=== PATIENT | male | born 1960 | race Caucasian/White ===

== ENCOUNTER → 2023-02-14 16:26 | Outpatient (BNVA) | payer SELFPAY | PROVIDERS: PCP Nurse Practitioner Family; Visit Provider Nurse Practitioner Family | DX: I10 Essential (primary) hypertension (principal); E11.9 Type 2 diabetes mellitus without complications | CPT/HCPCS: 80053; 80061; 83036; 84443; 85025 ==

== ENCOUNTER → 2023-10-13 09:48 | Outpatient (BNVA) | payer BC, SELFPAY | PROVIDERS: PCP Nurse Practitioner Family; Visit Provider Nurse Practitioner Family | DX: E11.9 Type 2 diabetes mellitus without complications (principal); E78.2 Mixed hyperlipidemia | CPT/HCPCS: 80053; 80061; 83036; 84443; 85025; G0103 ==

== ENCOUNTER → 2024-04-08 09:36 | Outpatient (BNVA) | payer BC, SELFPAY | PROVIDERS: PCP Nurse Practitioner Family; Visit Provider Nurse Practitioner | DX: E11.9 Type 2 diabetes mellitus without complications (principal) | CPT/HCPCS: 80053; 80061; 81000; 82607; 83036 ==

== ENCOUNTER 2024-04-09 17:48 | Inpatient (IN) | payer BC, SELFPAY ==
[2024-04-09] VITALS (21 sets, daily range): BP systolic 131–210; BP diastolic 55–100; PULSE 40–51; RESP 15–27; TEMP 36.4–36.8; O2SAT 92–100; BMI 30.4
--- NOTE | 2024-04-09 17:51 | ECG_ITS ---
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1960 Requested By: Eva Trimble Order Number: [id number] Jeff MD: PIYUSH KAY Measurements Intervals [place] Rate: 50 P: 0 FL: 0 QRS: -43 QRSD: 134 T: 58 QT: 494 QTc: 454 Interpretive Statements SINUS BRADYCARDIA WITH 2ND DEGREE AV BLOCK, 2:1 OR MOBITZ TYPE II LEFT AXIS DEVIATION [QRS AXIS < -30] RIGHT BUNDLE BRANCH BLOCK [120+ ms QRS DURATION, UPRIGHT V1, 40+ ms S IN I/aVL/V4/V5/V6] VOLTAGE CRITERIA FOR LVH [MEETS CRITERIA IN ONE OF: R(aVL), S(V1), R(V5), R(V5/V6)+S(V1)] MODERATE T-WAVE ABNORMALITY, CONSIDER LATERAL ISCHEMIA [-0.1+ mV T-WAVE IN I/aVL/V5/V6] CRITICAL TEST RESULT No previous ECG available for comparison Electronically Signed On 04-09-2024 23:32:41 ROLLER SKATE ASSEMBLER by PIYUSH KAY [email or web address] [id number]
--- NOTE | 2024-04-09 17:57 | CTR_ITS ---
PROCEDURE INFORMATION: Exam: CT Head Without Contrast Exam date and time: 04/09/2024 6:00 PM Age: 63 years old Clinical indication: Stroke-like symptoms; Altered mental status/memory loss; Additional info: Possible stroke TECHNIQUE: Imaging protocol: Computed tomography of the head without contrast. Radiation optimization: All CT scans at this facility use at least one of these dose optimization techniques: automated exposure control; mA and/or kV adjustment per patient size (includes targeted exams where dose is matched to clinical indication); or iterative reconstruction. Other technique: STROKE PROTOCOL was implemented. COMPARISON: No relevant prior studies available. RADIATION DOSE METRICS: Total DLP (mGy-cm): 1148.28 FINDINGS: Brain: There is moderate cortical atrophy. Low-density changes in the white matter are consistent with nonspecific small vessel chronic ischemic change. There is no intracranial mass, hemorrhage or edema. Cerebral ventricles: No ventriculomegaly. Paranasal sinuses: Visualized sinuses are unremarkable. No fluid levels. Mastoid air cells: Visualized mastoid air cells are well aerated. Bones: Unremarkable. No acute fracture. Soft tissues: Unremarkable. CT/CT head thrombolytic [id number] IMPRESSION: No acute intracranial finding. ASSESSMENT: ASPECTS ([place] Stroke Program Early CT Score) is 10.
--- NOTE | 2024-04-09 17:57 | CTR_ITS ---
PROCEDURE INFORMATION: Exam: CTA Head With Contrast, Arteriography Exam date and time: 04/09/2024 8:36 PM Age: 63 years old Clinical indication: Speech disturbance; Dysphasia; Additional info: Possible stroke TECHNIQUE: Imaging protocol: Computed tomographic angiography of the head with contrast. Exam focused on the arteries. 3D rendering (Not supervised by radiologist): MIP and/or 3D reconstructed images were created by the technologist. Radiation optimization: All CT scans at this facility use at least one of these dose optimization techniques: automated exposure control; mA and/or kV adjustment per patient size (includes targeted exams where dose is matched to clinical indication); or iterative reconstruction. Contrast material: OMNIPAQUE 350; Contrast volume: 100 ml; Contrast route: INTRAVENOUS (IV); COMPARISON: CT head thrombolytic [id number] 04/09/2024 6:00 PM RADIATION DOSE METRICS: Total DLP (mGy-cm): 500.69 FINDINGS: ANTERIOR CIRCULATION: Right internal carotid artery: Intracranial segment is patent with no significant stenosis. No aneurysm. Right middle cerebral artery: No occlusion or significant stenosis. No aneurysm. Right anterior cerebral artery: No occlusion or significant stenosis. No aneurysm. Left internal carotid artery: Intracranial segment is patent with no significant stenosis. No aneurysm. Left middle cerebral artery: No occlusion or significant stenosis. No aneurysm. Left anterior cerebral artery: No occlusion or significant stenosis. No aneurysm. POSTERIOR CIRCULATION: Right vertebral artery: No occlusion or significant stenosis. No aneurysm. Left vertebral artery: No occlusion or significant stenosis. No aneurysm. Basilar artery: No occlusion or significant stenosis. No aneurysm. Right posterior cerebral artery: There is origin of the right posterior cerebral artery. 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 Left posterior cerebral artery: There is origin of the left posterior cerebral artery. 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 No definite mass, mass effect, or midline shift. No abnormal enhancement identified. Cerebral ventricles: No ventriculomegaly. Bones/joints: Unremarkable. No acute fracture. Soft tissues: Unremarkable. 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 PROCEDURE INFORMATION: Exam: CTA Neck With Contrast Exam date and time: 04/09/2024 8:36 PM Age: 63 years old Clinical indication: Speech disturbance; Dysphasia; Additional info: Possible stroke TECHNIQUE: Imaging protocol: Computed tomographic angiography of the neck with contrast. Exam focused on the cervical segments of the vasculature. 3D rendering (Not supervised by radiologist): MIP and/or 3D reconstructed images were created by the technologist. Radiation optimization: All CT scans at this facility use at least one of these dose optimization techniques: automated exposure control; mA and/or kV adjustment per patient size (includes targeted exams where dose is matched to clinical indication); or iterative reconstruction. Contrast material: OMNIPAQUE 350; Contrast volume: 100 ml; Contrast route: INTRAVENOUS (IV); COMPARISON: CT head thrombolytic [id number] 04/09/2024 6:00 PM RADIATION DOSE METRICS: Total DLP (mGy-cm): 500.69 FINDINGS: Right common carotid artery: No stenosis. No dissection or occlusion. Right internal carotid artery: No stenosis of the extracranial segment. No dissection or occlusion. Right external carotid artery: No occlusion or stenosis of the origin. Left common carotid artery: No stenosis. No dissection or occlusion. Left internal carotid artery: No stenosis of the extracranial segment. No dissection or occlusion. Left external carotid artery: No occlusion or stenosis of the origin. Right vertebral artery: No stenosis. No dissection or occlusion. Left vertebral artery: No stenosis. No dissection or occlusion. Soft tissues: Normal. No significant soft tissue swelling. Bones/joints: No acute fracture. CT/CT angio headneck* [id number] IMPRESSION: No evidence of intracranial large vessel occlusion or aneurysm. IMPRESSION: No stenosis or occlusion. REFERENCES: NASCET CRITERIA. The degree of stenosis in the cervical segment of the internal carotid artery is based on NASCET criteria. Normal is no stenosis. Mild is less than 50% stenosis. Moderate is 50-69% stenosis. Severe is 70% to 99% stenosis. Total occlusion is no detectable patent lumen.
--- NOTE | 2024-04-09 17:57 | XRR_ITS ---
PROCEDURE INFORMATION: Exam: XR Chest Exam date and time: 04/09/2024 6:07 PM Age: 63 years old Clinical indication: Other: Weakness TECHNIQUE: Imaging protocol: Radiologic exam of the chest. Views: 1 view. COMPARISON: No relevant prior studies available. FINDINGS: Lungs: Unremarkable. No consolidation. Pleural spaces: Unremarkable. No pleural effusion. No pneumothorax. Heart/Mediastinum: Unremarkable. No cardiomegaly. Bones/joints: Unremarkable. XR/XR chest 1V portable [id number] IMPRESSION: No acute findings.
[2024-04-09 17:59] LABS: Glucose Point of Care 147 mg/dL (70-110)
--- NOTE | 2024-04-09 18:01 | ECG_ITS ---
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1960 Requested By: Eva Trimble Order Number: [id number] Reading MD: PIYUSH KAY Measurements Intervals [place] Rate: 47 P: 0 [place]: 0 QRS: -38 QRSD: 130 T: 16 QT: 498 QTc: 443 Interpretive Statements SINUS BRADYCARDIA WITH 2ND DEGREE AV BLOCK, 2:1 OR MOBITZ TYPE II LEFT AXIS DEVIATION [QRS AXIS < -30] RIGHT BUNDLE BRANCH BLOCK [120+ ms QRS DURATION, UPRIGHT V1, 40+ ms S IN I/aVL/V4/V5/V6] MODERATE VOLTAGE CRITERIA FOR LVH, CONSIDER NORMAL VARIANT [MEETS CRITERIA IN ONE OF: R(aVL), S(V1), R(V5), R(V5/V6)+S(V1)] MODERATE T-WAVE ABNORMALITY, CONSIDER LATERAL ISCHEMIA [-0.1+ mV T-WAVE IN I/aVL/V5/V6] Compared to ECG 04/09/2024 17:51:20 No significant changes Electronically Signed On 04-09-2024 23:30:12 OSTEOPATHIC MEDICINE TEACHER by PIYUSH KAY [email or web address] [id number]
--- NOTE | 2024-04-09 18:03 | ED_ITS ---
HPI - Neuro Symptoms/Deficit 2 General: Chief Complaint: Neuro Symptoms/Deficit Stated Complaint: Stroke Like Time Seen by Provider: 04/09/24 17:53 History of Present Illness: This is a 63-year-old Turkish man with a history of hypertension and diabetes who presents emergency room with strokelike symptoms by ambulance. This started about 4 PM, just under 2 hours ago. Reports of facial droop which has since resolved. Slurred speech. At this time he seems to have some expressive aphasia. He is hypertensive on presentation. Reports of some bradycardia. His heart rates in the 50s here. At this time he has no focal motor deficits and no other deficit other than difficulty following commands. He can answer simple questions like his name etc. but when asked to move certain body parts he becomes confused and with more complicated questions he has gibberish. Related Data Previous Rx's ?Medication ?Instructions ?Recorded mupirocin 2 % topical ointment 1 applic topical TID #1 5 grams 08/30/23 atorvastatin 40 mg tablet 40 mg PO DAILY #90 tabs 03/17 06/07 blood sugar diagnostic (OneTouch #50 ea 04/08/24 Ultra Test strips) blood-glucose meter (OneTouch #1 ea 04/08/24 Ultra2 Meter) glipizide 10 mg tablet, extended 10 mg PO DAILY #30 ta bs 04/08/24 release 24 hr metformin 500 mg tablet,extended 2,000 mg (4 x 500 mg) PO DAILY 04/08/24 release 24 hr (Glucophage XR) #120 tabs nystatin 100,000 unit/gram topical 1 applic topical BI D #30 grams 04/08/24 cream tirzepatide 2.5 mg/0.5 mL 2.5 mg (0.5 mL) SUBCUT .week ly #2 04/08/24 subcutaneous pen injector mL (Mounjaro) valsartan 320 mg tablet (Diovan) 320 mg PO DAILY #30 t abs 04/08/24 Allergies Allergy/AdvReac Type Severity Reaction Status Date / Time No Known Allergies Allergy Unverified 04/08/24 08:58 Review of Systems 2 Narrative: Constitutional symptoms: Negative except as documented in HPI. Skin symptoms: Negative except as documented in HPI. Eye symptoms: Negative except as documented in HPI. ENMT symptoms: Negative except as documented in HPI. Respiratory symptoms: Negative except as documented in HPI. Cardiovascular symptoms: Negative except as documented in HPI. Gastrointestinal symptoms: Negative except as documented in HPI. Genitourinary symptoms: Negative except as documented in HPI. Musculoskeletal symptoms: Negative except as documented in HPI. Neurologic symptoms: Negative except as documented in HPI. Psychiatric symptoms: Negative except as documented in HPI. Endocrine symptoms: Negative except as documented in HPI. PFSH ED 2 PFSH: Medical History (Updated 04/09/24 @ 19:15 by Eva Lamas MD) Hyperlipemia Diabetes Essential hypertension Surgical History Hx of hernia repair Family History Mother Diabetes mellitus, type 2 Social History Smoking and tobacco/nicotine status: never used tobacco/nicotine Alcohol intake: never Substance/Drug Use: never Adopted: No Caregiver/support person: No Lives independently: Yes Household members: spouse Housing: Manufactured/Mobile home Marital status: Number of children: 1 Number of grandchildren: 22 Highest education level completed: Some College, No Degree service: No Current occupational status: employed Do you think of yourself as: Straight/Heterosexual Current gender identity: Male Physical Exam 2 Narrative: EXAM NARRATIVE: General: Alert, no acute distress. Skin: Warm, dry. Head: Normocephalic, atraumatic. Neck: Supple, trachea midline. Eye: Extraocular movements are intact. Ears, nose, mouth and throat: mucosa moist. Cardiovascular: Regular, Normal peripheral perfusion. Respiratory: Lungs are clear to auscultation, respirations are non-labored, breath sounds are equal, Symmetrical chest wall expansion. Gastrointestinal: Soft, Nontender, Non distended Musculoskeletal: Normal ROM, no deformity. Neurological: Alert and oriented, no focal motor deficits are observed. He has difficulty with speech and following commands. Seem to have an expressive aphasia. I can find no visual field deficits. Psychiatric: Cooperative, appropriate mood & affect. Course 2 Vital Signs: Vital signs: Vital Signs Temperature 98.2 F 04/09/24 17:49 Pulse Rate 50 L 04/09/24 18:58 Respiratory Rate 18 04/09/24 18:58 Blood Pressure 164/62 04/09/24 18:58 Pulse Oximetry 98 04/09/24 18:58 Oxygen Delivery Me thod Room Air 04/09/24 18:58 MDM - Neuro Symptoms/Deficit Medical Decision Making Medical decision making: Differential diagnosis for patient with focal neurologic deficit(s) includes but not limited to and based on the above HPI, review of systems and physical exam: ischemic stroke, hemorrhagic stroke and embolic stroke secondary to atrial fibrillation), TIA, Oliva's palsey, metabolic encephalopathy with previous stroke. Orders placed to evaluate differential diagnosis based on the above differential, HPI and physical exam Consultation: Dr. Mccall with neurology was here at the time of presentation secondary to another stroke and evaluated the patient in the CT scanner and administered TNKase secondary to the patient's expressive aphasia. NIH Stroke Scale/Score (NIHSS) from [email or web address] on 04/09/2024 All calculations should be rechecked by clinician prior to use RESULT SUMMARY: 2 points NIH Stroke Scale INPUTS: 1A: Level of consciousness ?> 0 = Alert; keenly responsive 1B: Ask month and age ?> 0 = Both questions right 1C: 'Blink eyes' & 'squeeze hands' ?> 0 = Performs both tasks 2: Horizontal extraocular movements ?> 0 = Normal 3: Visual lakhani ?> 0 = No visual loss 4: Facial palsy ?> 0 = Normal symmetry 5A: Left arm motor drift ?> 0 = No drift for 10 seconds 5B: Right arm motor drift ?> 0 = No drift for 10 seconds 6A: Left leg motor drift ?> 0 = No drift for 5 seconds 6B: Right leg motor drift ?> 0 = No drift for 5 seconds 7: Limb Ataxia ?> 0 = No ataxia 8: Sensation ?> 0 = Normal; no sensory loss 9: Language/aphasia ?> 2 = Severe aphasia: fragmentary expression, inference needed, cannot identify materials 10: Dysarthria ?> 0 = Normal 11: Extinction/inattention ?> 0 = No abnormality CT head: No acute intracranial process. no intracranial hemorrhage, no evidence of infarct. no evidence of acute fracture.This was reviewed and interpreted by myself the ER physician. Chest x-ray: No acute process. No infiltrate. No pneumothorax. This was reviewed and interpreted by myself the emergency room physician. I also reviewed the radiology report. Lab Review: Laboratory results were reviewed and interpreted by myself the emergency room physician. No leukocytosis. No anemia. No renal failure. Glucose is mildly elevated at 171. Coags are normal. I reviewed the patient's medical record. Reexamination: At 1921 patient appears quite a bit improved. Still with an occasional missed word or wrong word but speech is much more clear at this time. No increased work of breathing. No focal motor deficits. Consultation: I spoke with Dr. Blount who is on-call for the hospitalist service who agrees to admission. Assessment and plan: Cerebrovascular accident Expressive aphasia Malignant hypertension Bradycardia ?TNKase given per neurologist instructions. ?IV hydralazine was given. Blood pressure remained quite elevated and so Cardene drip was initiated. -I discussed the patient with the hospitalist on-call who is admitting the patient. - Discussed findings and plan with patient. Answered any questions. - All laboratory values were reviewed and interpreted personally by myself, the ER physician - All imaging was reviewed and interpreted personally by myself, the ER physician. - Evaluation and treatment of this problem were appropriate in the emergency setting Critical care -I spent a total of >35 minutes of critical care time managing the patient, independent of any other practitioner. -The time involved in the performance of separately reportable procedures was not counted towards critical care time. Lab Data 04/09/24 17:56 04/09/24 17:56 Radiology Impressions Chest X-Ray 04/09/24 17:57 IMPRESSION: No acute findings. Head CT 04/09/24 17:57 IMPRESSION: No acute intracranial finding. ASSESSMENT: ASPECTS ([place] Stroke Program Early CT Score) is 10. ADDENDUM: 04/09/249 Addendum: THIS REPORT CONTAINS FINDINGS THAT MAY BE CRITICAL TO PATIENT CARE. The findings were verbally communicated via telephone conference with EVA LAMAS at 6:18 PM PAMPHLET DISTRIBUTOR on 04/09/2024. The findings were acknowledged and understood. Laboratory Results WBC 9.03 10^3/uL (3.29-11.43) 04/09/24 17:56 RBC 5.13 10^6/uL (3.85-5.65) 04/09/24 17:56 Hgb 16.10 g/dL (11.27-16.99) 04/09/24 17:56 Hct 46.9 % (37-53) 04/09/24 17:56 MCV 91.4 fl (82-101) 04/09/24 17:56 MCH 31.4 pg (27-33) 04/09/24 17:56 MCHC 34.3 g/dL (30-55) 04/09/24 17:56 RDW 12.3 % (12.1-15.1) 04/09/24 17:56 Plt Count 204 10^3/cmm (157-399) 04/09/24 17:56 MPV 11.6 fL (7.4-10.4) H 04/09/24 17:56 Neut % (Auto) 55.4 % 04/09/24 17:56 Lymph % (Auto) 34.9 % 04/09/24 17:56 Mcdowell % (Auto) 6.9 % 04/09/24 17:56 Eos % (Auto) 1.8 % 04/09/24 17:56 Baso % (Auto) 0.7 % 04/09/24 17:56 Neut # (Auto) 5.01 10^3/uL (1.8-7.7) 04/09/24 17:56 Lymph # (Auto) 3.2 10^3/uL (0.8-4.8) 04/09/24 17:56 Mcdowell # (Auto) 0.6 10^3/uL (0.2-0.9) 04/09/24 17:56 Eos # (Auto) 0.2 10^3/uL (0.0-0.8) 04/09/24 17:56 Baso # (Auto) 0.1 10^3/uL (0.0-0.1) 04/09/24 17:56 Nucleated RBC % (auto) 0 % 04/09/24 17:56 Nucleated RBCs # 0.0 /100WBC 04/09/24 17:56 PT 12.50 SECONDS (12.1-14.9) 04/09/24 17:56 INR 0.87 (0.8-1.2) 04/09/24 17:56 APTT 27.1 SECONDS (23.9-36.7) 04/09/24 17:56 Sodium 136 mmol/L (136-145) 04/09/24 17:56 Potassium 4.3 mmol/L (3.5-5.1) 04/09/24 17:56 Chloride 100 mmol/L (98-107) 04/09/24 17:56 Carbon Dioxide 28 mmol/L (22-29) 04/09/24 17:56 Anion Gap 12.3 (5-19) 04/09/24 17:56 BUN 19 mg/dL (8-23) 04/09/24 17:56 Creatinine 0.9 mg/dL (0.7-1.2) 04/09/24 17:56 GFR Calculation 85.8 mL/min (90-130) L 04/09/24 17:56 Glucose 171 mg/dL (65-115) H 04/09/24 17:56 POC Glucose 147 mg/dL (70-110) H 04/09/24 17:55 Calculated Osmolality 288 mOsm/kg (285-295) 04/09/24 17:56 Calcium 9.6 mg/dL (8.5-10.5) 04/09/24 17:56 Total Bilirubin 1.0 mg/dL (0.15-1.2) 04/09/24 17:56 AST 12 U/L (0-40) 04/09/24 17:56 ALT 13 U/L (0-41) 04/09/24 17:56 Alkaline Phosphatase 104 U/L (40-130) 04/09/24 17:56 Total Protein 6.6 g/dL (6.6-8.7) 04/09/24 17:56 Albumin 4.3 g/dL (3.5-5.2) 04/09/24 17:56 Globulin 2.3 g/dL (1.3-4.6) 04/09/24 17:56 All radiology interpretation(s) finalized by discharge Discharge Plan Discharge Patient Disposition: Admitted As Inpatient Clinical Impression: Cerebrovascular accident, Malignant hypertension, Expressive aphasia Condition: Stable Coding Level of Care Code ED Senior Net Developer Architect for Yohan Man
[2024-04-09 18:05] LABS: Basophils # 0.1 10^3/uL (0.0-0.1); Basophils % 0.7 %; Eosinophils # 0.2 10^3/uL (0.0-0.8); Eosinophils % 1.8 %; Hematocrit 46.9 % (37-53); Lymphocytes # 3.2 10^3/uL (0.8-4.8); Lymphocytes % 34.9 %; Mean Corpuscular HGB Conc 34.3 g/dL (30-55); Mean Corpuscular Hemoglobin 31.4 pg (27-33); Mean Corpuscular Volume 91.4 fl (82-101); Mean Platelet Volume 11.6 fL (7.4-10.4); Monocytes # 0.6 10^3/uL (0.2-0.9); Monocytes % 6.9 %; Neutrophils # 5.01 10^3/uL (1.8-7.7); Neutrophils % 55.4 %; Nucleated Red Blood Cells % 0 %; Platelet Count 204 10^3/cmm (157-399); Red Blood Count 5.13 10^6/uL (3.85-5.65); Red Cell Distribution Width 12.3 % (12.1-15.1); White Blood Count 9.03 10^3/uL (3.29-11.43)
[2024-04-09] MEDS: hyDRALAzine 20 mg/mL INJ 1 mL IVP (18:14)
[2024-04-09] MEDS: tenecteplase 50mg Kit (STROKE) 25 MG IVP (18:17)
--- NOTE | 2024-04-09 18:22 | P.PNCC_ITS ---
Stroke Alert Activation ED Arrival Date: 04/09/24 ED Arrival Time: 17:49 Stroke Alert Activation Time: 17:49 Stroke MD @ Bedside Time: 17:55 NIH Stroke Scale Time: 17:55 NIH stroke score NIHSS: Level Of Consciousness - 1a: 1 (Receptive aphasia) Level Of Consciousness Questions - 1b: One Correct Level Of Consciousness Commands - 1c: One Correct Best Gaze - 2: Normal Visual Matos - 3: No Visual Loss Facial Palsy - 4: Normal Motor Arm Right - 5: No Drift Motor Arm Left - 5: No Drift Motor Leg Right - 6: No Drift Motor Leg Left - 6: No Drift Limb Ataxia - 7: Absent Sensory - 8: Normal Best Language - 9: Severe Aphasia (Severe receptive aphasia.) Dysarthia - 10: Normal Extinction And Inattention - 11: 0 Score: Total Score: 5 Stroke Alert Data/Treatment Time to CT of Head: 17:57 CT Results Time: 18:16 CT Impression: normal. Read by me at 1800. Stroke Risk Factors: hypertension and diabetes mellitus tPA Started Time: tPA Started - Time: 18:17 tPA Admin Prior to Arrival: No Patient & Family Educated on: Cause of Stroke, Treament Plan, Stroke Education Booklet and tPA Risks/Benefits Other Patient & Family Education: Plan to admit to ICU. The risks and benefits of TNK were discussed with the patient. His blood pressure was 220/110 and he received 20 mg of hydralazine IV which brought his blood pressure down to 154 systolic and we were able to proceed. We were delayed by 10 minutes waiting for his blood pressure to come down. Standardized Stroke Orders Used: Yes Other Information: The patient is seen in the clinics here and we were able to review his previous history including his medication list from [facility]. He was just seen on 04/08 in her office. He told me vomiting medications he was on and he was accurate but he is not on a blood thinner. Critical Care Time Critical Care Time: 30 - 74 mins A&P Assessment and plan (1) Left acute arterial ischemic stroke, MCA (middle cerebral artery): 63-year-old former [place]e from [facility] who presents with a posterior branch left middle cerebral artery stroke with dense receptive aphasia. He had multiple errors on exam including inability to repeat a simple phrase, left- right confusion, finger agnosia, and inability to express himself with consistent word salad. His symptoms started several hours ago, improved and then he deteriorated again. He estimates that I am correct in saying his symptoms started around 4 PM but that he got better and then got worse again. His blood pressure was severely elevated on arrival and he was bradycardic so we used hydralazine to bring his blood pressure down with good success and he was able to be treated. We now have him in a quiet dark room and he is doing much better. Will plan to admit him to ICU and keep his blood pressure under control since he received thrombolytic therapy. He will go back for CTA but I am not anticipating that he will require transfer for thrombectomy unless he has a large clot in the posterior branch of his left middle cerebral artery in which case he would be a candidate for embolectomy because his aphasia is severe. (2) Essential hypertension: (3) Diabetes: Qualifiers: Diabetes mellitus complication status: with hyperglycemia Diabetes mellitus 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 accountant insulin use: without nursing home use Diabetes mellitus type: type 2 Qualified Code(s): E11.65 - Type 2 diabetes mellitus with hyperglycemia PDMP PDMP Reviewed: Not Reviewed Coding Level of Care Code Acute Code for [facility] Diagnoses Left acute arterial ischemic stroke, MCA (middle cerebral artery) I63.512 Essential hypertension I10 Type 2 diabetes mellitus with hyperglycemia, without long-term current use of insulin E11.65 Diabetes mellitus complication status: with hyperglycemia Diabetes mellitus nursing home insulin use: without 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 accountant use Diabetes mellitus type: type 2
[2024-04-09 18:25] LABS: INR 0.87 (0.8-1.2)
[2024-04-09 18:26] LABS: Alanine Aminotransferase 13 U/L (0-41); Albumin Level 4.3 g/dL (3.5-5.2); Alkaline Phosphatase 104 U/L (40-130); Anion Gap 12.3 (5-19); Aspartate Amino Transferase 12 U/L (0-40); Blood Urea Nitrogen 19 mg/dL (8-23); Calcium 9.6 mg/dL (8.5-10.5); Carbon Dioxide 28 mmol/L (22-29); Chloride 100 mmol/L (98-107); Creatinine Clr Calc Pharmacy 102.0612; Globulin 2.3 g/dL (1.3-4.6); Glomerular Filtration Rate 85.8 mL/min (90-130); Glucose 171 mg/dL (65-115); Osmolality Calculated 288 mOsm/kg (285-295); Partial Thromboplastin Time 27.1 SECONDS (23.9-36.7); Potassium 4.3 mmol/L (3.5-5.1); Sodium 136 mmol/L (136-145); Total Protein 6.6 g/dL (6.6-8.7)
[2024-04-09 19:37] LABS: Influenza A NEGATIVE (Negative); Influenza B NEGATIVE (Negative); Respiratory Syncytial Virus Ce NEGATIVE (Negative); SARS-CoV-2 PCR NEGATIVE (Negative)
--- NOTE | 2024-04-09 19:54 | PC.NURSE ---
Pt advised nurse of having sever headache. ER physician notified and advised Dr Mccall be contacted. Dr Mccall gave the verbal order for 500mg of Depacon be given. Provider stated if he has some relief but not complete to repeat the medication.
[2024-04-09] MEDS: valproic acid inj 500 MG in sodium chloride 0.9% 50 ML 55 MG IV (20:07)
--- NOTE | 2024-04-09 20:19 | PM.HP ---
Providers/Chief Complaint Primary Care Provider: JOSÉ Mata Chief Complaint: Stroke Like History of Present Illness Forrest Hart is a 63 year old male status post TNKase, NIH score 5 in the ER, patient has been started on Cardene drip for hypertension going to the ICU. Patient suffered from slurred speech, disorientation around 4:00, had intermittent symptoms with waxing and waning symptoms, he was extremely hypertensive as well. Patient is stating that he has never been diagnosed with stroke or CVA DC or CHF in the past, he works full-time, active for his age, takes valsartan for blood pressure, takes glipizide stating that his blood pressure and diabetes has been under control, At the time of evaluation patient is bradycardic heart rate 150s, EKG showing type II AV block, cardiology notified, currently blood pressure is stable no active chest pain confusion or shortness of breath slurring of speech has improved Patient not on any AV dona blocking agent Since patient has received TNKase we cannot do troponin anymore we will ask lab to see if they can at least draw 1 troponin from the sample they have in the lab I have asked nurse to do bedside eval and let patient eat because he is extremely dry clinically Review of Systems Const: Denies: fever(s) Eyes: Denies: change in vision ENMT: Denies: throat pain Card: Denies: chest pain Resp: Denies: dyspnea GI: Denies: abdominal pain : Denies: flank pain Musc: Denies: neck pain Neuro: Reports: Slurred speech present Medications/Allergies Home Medications ?Medication ?Instructions ?Recorded ?Confirmed ?Last Taken ?Type mupirocin 2 % topical ointment 1 applic topical TID #15 grams 08/30/23 04/08/24 Unknown Rx atorvastatin 40 mg tablet 40 mg PO DAILY #90 tabs 04/08/24 04/08/24 Unknown Rx blood sugar diagnostic (OneTouch #50 ea 04/08/24 04/08/24 Unknown Rx Ultra Test strips) blood-glucose meter (OneTouch #1 ea 04/08/24 04/08/24 Unknown Rx Ultra2 Meter) glipizide 10 mg tablet, extended 10 mg PO DAILY #30 tabs 04/08/24 04/08/24 Unknown Rx release 24 hr metformin 500 mg tablet,extended 2,000 mg (4 x 500 mg) PO DAILY 04/08/24 04/08/24 Unknown Rx release 24 hr (Glucophage XR) #120 tabs nystatin 100,000 unit/gram topical 1 applic topical BID #30 grams 04/08/24 04/08/24 Unknown Rx cream tirzepatide 2.5 mg/0.5 mL 2.5 mg (0.5 mL) SUBCUT .weekly #2 04/08/24 04/08/24 Unknown Rx subcutaneous pen injector mL (Mounjaro) valsartan 320 mg tablet (Diovan) 320 mg PO DAILY #30 tabs 04/08/24 04/08/24 Unknown Rx Allergies Allergy/AdvReac Type Severity Reaction Status Date / Time No Known Allergies Allergy Unverified 04/08/24 08:58 PFSH Acute PFSH: Medical History Hyperlipemia Diabetes Essential hypertension Surgical History Hx of hernia repair Family History Mother Diabetes mellitus, type 2 Social History Smoking and tobacco/nicotine status: never used tobacco/nicotine Alcohol intake: never Substance/Drug Use: never Adopted: No Caregiver/support person: No Lives independently: Yes Household members: spouse Housing: Manufactured/Mobile home Marital status: Number of children: 1 Number of grandchildren: 22 Highest education level completed: Some College, No Degree service: No Current occupational status: employed Do you think of yourself as: Straight/Heterosexual Current gender identity: Male Vitals/I&O/Wt Last Vital Signs Temp 98.2 F 04/09/24 17:49 Pulse 49 L 04/09/24 20:11 Resp 16 04/09/24 20:11 BP 162/85 04/09/24 20:11 Pulse Ox 97 04/09/24 20:11 O2 Del Method Room Air 04/09/24 20:11 Weight last 48 hrs Weight 99.79 kg Physical Exam Narrative: Patient is laying supine Slurring of speech improved as per the patient, patient is able to comprehend and speak without any difficulty during my evaluation Awake and alert able to follow commands Clinically patient is dry Abdomen soft Heart rate 150s No active chest pain S1, S2 No audible stridor or wheezing Pupils symmetrical Data 04/09/24 17:56 04/09/24 17:56 A&P Assessment and plan (1) Malignant hypertension: (2) Diabetes: Qualifiers: Diabetes mellitus type: type 2 Diabetes mellitus halfway insulin use: without ferry terminal agent use Diabetes mellitus complication status: with hyperglycemia Qualified Code(s): E11.65 - Type 2 diabetes mellitus with hyperglycemia (3) Cerebrovascular accident: (4) Expressive aphasia: (5) Mobitz (type) II atrioventricular block: Plan Acute CVA Status post TNKase. Check hemoglobin A1c, lipid panel echo with bubble study Patient can be started on aspirin 24 hours after TNKase Appreciate neurorecommendations PT OT ST After bedside evaluation patient should be able to eat today, starting with speech has improved, clinically dry If passed bedside eval we can start diabetic diet Hypertensive urgency: Goal to keep blood pressure below 180/105 mmHg Bradycardia: EKG showing type II AV block 221 Not on any AV dona blocking agent Will request echo, We cannot do troponin because patient has received TNKase Spoke with cardiology, consult placed Cardiology consulted Full code Advance diet after bedside eval DVT prophylaxis, anticoagulation contraindicated after TNKase, would use SCDs PDMP PDMP Reviewed: Not Reviewed Attestations Medical Necessity Statement*: Monitor in ICU after TNKase, need monitoring for bradycardia Diagnoses Malignant hypertension I10 Type 2 diabetes mellitus with hyperglycemia, without long-term current use of insulin E11.65 Diabetes mellitus type: type 2 Diabetes mellitus ferry terminal agent insulin use: without halfway use Diabetes mellitus complication status: with hyperglycemia Cerebrovascular accident I63.9 Expressive aphasia R47.01 Mobitz (type) II atrioventricular block I44.1
[2024-04-09] MEDS: iohexol 350 mg/mL 500 mL Btl (per mL) IV (20:41)
[2024-04-09 21:16] LABS: Estmated Average Glucose 263; Hemoglobin A1C 10.8 % (4.0-6.0)
[2024-04-09] MEDS: hyDRALAzine 20 mg/mL INJ 1 mL 5 MG IVP (21:32)
--- NOTE | 2024-04-09 21:35 | PC.NURSE ---
Physician Communication Dr. Blount at bedside, verbal orders received to do a bedside swallow eval and administer 5 mg hydralazine IVP once to keep BP <180/105. If patient passes bedside swallow eval, order received for diabetic diet.
[2024-04-09 21:59] LABS: Glucose Point of Care 147 mg/dL (70-110)
--- NOTE | 2024-04-09 22:30 | PC.NURSE ---
Heart Block Patient's EKG showing sinus bradycardia with 2nd degree AV block, Mobitz type II. Dr. Blount notified.
[2024-04-09 22:50] LABS: Chol HDL Ratio 3.67 mg/dL (1.0-5.00); Cholesterol 198 mg/dL (0-200); HDL Cholesterol 54 mg/dL (60-100); LDL Cholesterol Calculated 122 mg/dL (50-129); Triglycerides 111 mg/dL (0-150); VLDL Cholestrol Calculation 22 mg/dL (0-30)
[2024-04-09 23:20] LABS: Troponin(5th) Baseline 16 ng/L (0-15)
[2024-04-09 23:26] LABS: Bilirubin Urine Negative (Negative); Blood Urine Negative (Negative); Glucose Urine UA Trace (Normal); Ketones Urine 1+ (Negative); Leukocyte Esterase Urine Negative (Negative); Nitrate Urine Negative (Negative); Protein Urine Trace (Negative); Urine Appearance Clear (CLEAR); Urine Color Yellow (Yellow)
[2024-04-09 23:46] LABS: Bacteria Urine TRACE /hpf; RBC Urine 0-4 /hpf (0-2); Specific Gravity, Urine 1.062 (1.005-1.030); Squamous Epithelial Cell Urine 0-4 /hpf (0-5); UA Manual Slide Review YES; UA Slide Review UA Slide Review Perf; WBC Urine 0-4 /hpf (0-5)
[2024-04-10] VITALS (98 sets, daily range): BP systolic 85–195; BP diastolic 48–112; PULSE 38–58; RESP 0–31; TEMP 36.4–37.7; O2SAT 87–97
[2024-04-10 00:03] LABS: Thyroid Stimulating Hormone 1.35 uIU/mL (0.27-4.20); Vitamin B12 500 pg/mL (232-1245)
[2024-04-10] MEDS: DOPamine drip 400 MG/250 ML PREMIX 19.13 MG IV (00:07)
--- NOTE | 2024-04-10 00:16 | PC.NURSE ---
Dopamine Patient's heart rate decreasing into the low 40s and maintaining with new irregularity. While attempting to obtain ekg and neurological assessment, patient noted to be confused with word salad, unable to state where he is, what year it is, but able to follow commands. Bilateral hospital admissions clerk strength equal, lower extremity strength equal, no facial asymmetry noted. Dr. Blount contacted and order received for dopamine drip.
--- NOTE | 2024-04-10 00:27 | CTR_ITS ---
PROCEDURE INFORMATION: Exam: CT Head Without Contrast Exam date and time: 04/10/2024 12:41 AM Age: 63 years old Clinical indication: Altered mental status/memory loss; Additional info: Confusion after tnkase TECHNIQUE: Imaging protocol: Computed tomography of the head without contrast. Radiation optimization: All CT scans at this facility use at least one of these dose optimization techniques: automated exposure control; mA and/or kV adjustment per patient size (includes targeted exams where dose is matched to clinical indication); or iterative reconstruction. COMPARISON: CT angio headneck* [id number] 04/09/2024 8:36 PM RADIATION DOSE METRICS: Total DLP (mGy-cm): 1228.58 FINDINGS: Limitations: Presence of intravenous contrast on this examination limits of sensitivity of this study for subarachnoid hemorrhage. Brain: There is moderate cortical atrophy. Low-density changes in the white matter are consistent with nonspecific small vessel chronic ischemic change. There is no intracranial mass, hemorrhage or edema. Cerebral ventricles: No ventriculomegaly. Paranasal sinuses: Visualized sinuses are unremarkable. No fluid levels. Mastoid air cells: Visualized mastoid air cells are well aerated. Bones: Unremarkable. No acute fracture. Soft tissues: Unremarkable. Vasculature: There is residual contrast material seen within vascular structures from the previous CT angiogram procedure. CT/CT head wo con* [id number] IMPRESSION: 1. Atrophy and chronic ischemic changes. 2. No acute intracranial finding or significant change from the examination done earlier this evening.
--- NOTE | 2024-04-10 00:30 | PC.NURSE ---
CT Patient complaining of pain; when interrogated, patient pointed to head. When asked if he had a headache, patient nodded yes then when asked if it was a severe headache, patient stated middle, eastern then moderate. Dr. Blount notified of continued confusion and headache pain. Orders received for a head CT without contrast as well as another dose of valproic acid.
[2024-04-10] MEDS: hyDRALAzine 20 mg/mL INJ 1 mL 10 MG IVP ×2 (01:30→07:36)
[2024-04-10] MEDS: valproic acid inj 500 MG in sodium chloride 0.9% 50 ML 55 MG IV (01:31)
[2024-04-10] MEDS: ondansetron 2 mg/ML SDV 2 mL 4 MG IVP (02:08)
--- NOTE | 2024-04-10 04:23 | ECG_ITS ---
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 Measurements Intervals Somis Rate: 53 P: 0 IN: 0 QRS: -40 QRSD: 127 T: 25 QT: 531 QTc: 501 Interpretive Statements SINUS BRADYCARDIA WITH 2ND DEGREE AV BLOCK, 2:1 OR MOBITZ TYPE II LEFT AXIS DEVIATION [QRS AXIS < -30] RIGHT BUNDLE BRANCH BLOCK [120+ ms QRS DURATION, UPRIGHT V1, 40+ ms S IN I/aVL/V4/V5/V6] MODERATE VOLTAGE CRITERIA FOR LVH, CONSIDER NORMAL VARIANT [MEETS CRITERIA IN ONE OF: R(aVL), S(V1), R(V5), R(V5/V6)+S(V1)] CRITICAL TEST RESULT Compared to ECG 04/09/2024 22:03:47 T-wave abnormality no longer present Possible ischemia no longer present Electronically Signed On 04-13-2024 08:29:33 FEDERAL DISTRICT CLERK by Siva Chery M.D. [id number]
[2024-04-10] MEDS: DOPamine drip 400 MG/250 ML PREMIX 38.25 MG IV ×2 (06:39→21:05)
[2024-04-10 08:07] LABS: Glucose Point of Care 276 mg/dL (70-110)
--- NOTE | 2024-04-10 08:49 | P.PN_ITS ---
Subjective 2 Subjective: no complaints except he wants to go home Vitals/I&O/Wt Last Vital Signs Temp 98.4 F 04/10/24 07:43 Pulse 55 L 04/10/24 08:15 Resp 16 04/10/24 08:15 BP 173/61 04/10/24 07:43 Pulse Ox 95 04/10/24 08:15 O2 Del Method Room Air 04/10/24 08:15 04/09/24 04/10/24 04/10/24 22:59 06:59 14:59 Intake Total 360.000 / 360.000 Output Total 825 / 825 Balance -465.000 / -465.000 Weight last 48 hrs Weight 224 lb 13.944 oz Weight 224 lb 13.944 oz Weight 220 lb Physical Exam 2 Narrative: GENERAL: The patient was overweight. MENTAL STATUS: He was able to repeat a simple but not a complex phrase. He has difficulty following more than a one-step command. He was able to identify his right thumb. Mildly confused consistent with receptive aphasia. CRANIAL NERVES: No evidence of visual field cut. Face symmetric. MOTOR: There was no drift of the extended arms. Fine movements in the hands were rapid and symmetric. COORDINATION: No cerebellar signs GAIT: He was able to stand independently at the bedside with standby assistance CARDIOVASCULAR: The heart sounds were normal without murmur or gallop. Regular rate and rhythm. Data 04/09/24 17:56 04/09/24 17:56 A&P Assessment and plan (1) Left acute arterial ischemic stroke, MCA (middle cerebral artery): Posterior branch left middle cerebral artery stroke with receptive aphasia. No motor deficit and I cannot find a visual field cut. He still has residual findings. He received TNK yesterday. Today he needs to have repeat CT of the head to make sure he did not have hemorrhage from the TNK. His CT angiogram did not show intracranial or extracranial stenosis. Search for a cardiac cause with echocardiogram with bubble study was negative with an ejection fraction of 60 to 65% and no sign of an intracardiac shunt. Plan on prolonged monitoring for atrial fibrillation. Follow-up with me as an outpatient. He can probably go home tomorrow if all goes well today. (2) Malignant hypertension: (3) Diabetes: Qualifiers: Diabetes mellitus type: type 2 Diabetes mellitus prison insulin use: without lobsterman use Diabetes mellitus complication status: with hyperglycemia Qualified Code(s): E11.65 - Type 2 diabetes mellitus with hyperglycemia PDMP PDMP Reviewed: Not Reviewed Attestations 2 Medical Necessity Statement*: Acute stroke searching for cause Coding Level of Care Code 08606 Diagnoses Left acute arterial ischemic stroke, MCA (middle cerebral artery) I63.512 Malignant hypertension I10 Type 2 diabetes mellitus with hyperglycemia, without long-term current use of insulin E11.65 Diabetes mellitus type: type 2 Diabetes mellitus lobsterman insulin use: without lobsterman use Diabetes mellitus complication status: with hyperglycemia
[2024-04-10] MEDS: atorvastatin 40 mg Tablet 80 MG PO (08:58)
[2024-04-10] MEDS: losartan 50 mg Tablet 100 MG PO (08:59)
--- NOTE | 2024-04-10 09:19 | PC.NURSE ---
communication coordinator rounds- gave patient stroke book at 0825, patient improving, observed working with PT.
--- NOTE | 2024-04-10 09:51 | PC.NURSE ---
Patient refused morning insulin. Blood Sugar was 276. Patient is afraid that if he takes insulin he will become insulin dependent the rest of his life. NUrse educated the patient on insulin dependence, oral diabetes medications, as well as his poor blood sugar control evidenced by his A1C of 10.8. Nurse also explained how poorly controlled diabetes is a major risk factor for strokes and likely contributed to his current condition. Patient acknowledged noncompliance with home medications and poor diet, and still refused insulin. Nurse informed the patient that we will continue to check blood sugars and he is free to change his mind. Patient seemed receptive to receiving insulin if his blood sugar increases.
--- NOTE | 2024-04-10 11:32 | P.PN_ITS ---
Subjective 2 Subjective: Patient continues to demonstrate deficits in speech. He denies any deficits in extremities with regard to strength or sensation changes. Discussed plan of care. Remains on dopamine drip for heart rate augmentation. Cardiology evaluation pending. Medications: Reviewed: Yes Vitals/I&O/Wt Last Vital Signs Temp 98.6 F 04/10/24 08:45 Pulse 46 L 04/10/24 10:45 Resp 22 H 04/10/24 10:45 BP 129/52 04/10/24 10:45 Pulse Ox 92 04/10/24 10:45 O2 Del Method Room Air 04/10/24 08:45 04/09/24 04/10/24 04/10/24 22:59 06:59 14:59 Intake Total 360.000 / 360.000 164.475 / 164.475 Output Total 825 / 825 Balance -465.000 / -465.000 164.475 / 164.475 Weight last 48 hrs Weight 102 kg Weight 102 kg Weight 99.79 kg Physical Exam 2 Narrative: General: Patient is awake and alert. Head: Normocephalic. Atraumatic. EOM intact. Neck: No JVD. Cardiovascular: No gallops. No murmurs. Hypertensive. Bradycardic. Lungs: Clear to auscultation, no use of accessory muscles, no crackles or wheezes. Skin: No jaundice. No rashes. Abdomen: Normal bowel sounds, abdomen soft and nontender. Extremities: No cyanosis or clubbing. Musculoskeletal: No swollen or erythematous joints. Neurological: Moves all 4 extremities. No myoclonus. Expressive aphasia noted. Otherwise cranial nerves II through XII grossly intact. Data 04/09/24 17:56 04/09/24 17:56 A&P Assessment and plan (1) Cerebrovascular accident: Status post TNKase Follow-up echo with bubble Neurology following, appreciate recommendations Continue physical occupational and speech therapy Stroke education (2) Heart block: Continue dopamine infusion Continuous telemetry monitoring Closely monitor electrolytes Cardiology evaluation pending (3) Expressive aphasia: Expressive aphasia secondary to acute stroke Treating underlying stroke Continue speech therapy (4) Diabetes: Type 2 diabetes mellitus, uncontrolled with hyperglycemia A1c 10.8 Start Lantus tonight Sliding-scale correction Qualifiers: Diabetes mellitus type: type 2 Diabetes mellitus termite treater helper insulin use: without termite treater helper use Diabetes mellitus complication status: with hyperglycemia Qualified Code(s): E11.65 - Type 2 diabetes mellitus with hyperglycemia (5) Essential hypertension: Allow permissive hypertension for now, monitor blood pressures closely (6) Hyperlipemia: Continue statin Qualifiers: Hyperlipidemia type: mixed hyperlipidemia Qualified Code(s): E78.2 - Mixed hyperlipidemia Plan DVT prophylaxis: SCD PDMP PDMP Reviewed: Not Reviewed Attestations 2 Medical Necessity Statement*: Patient requires ongoing hospitalization for post TNKase protocol, therapy evaluation, dopamine infusion, and cardiology evaluation Critical Care Time: The high probability of a clinically significant, sudden or life threatening deterioration of the patient's cardiovascular requiring dopamine drip, acute stroke requiring TNKase system(s) required my full and direct attention, intervention and personal management. The critical care time is as shown. This time is in addition to time spent performing any reported procedures but includes the following: [x] Data and vital sign review and interpretation [x] Patient assessment, examination and intervention [x] Documentation [x] Medication orders and management Critical Care Time (min): 35 Coding Level of Care Code Acute Code for [facility] Fwd Diagnoses Cerebrovascular accident I63.9 Heart block I45.9 Expressive aphasia R47.01 Type 2 diabetes mellitus with hyperglycemia, without long-term current use of insulin E11.65 Diabetes mellitus type: type 2 Diabetes mellitus half-way insulin use: without termite treater helper use Diabetes mellitus complication status: with hyperglycemia Essential hypertension I10 Mixed hyperlipidemia E78.2 Hyperlipidemia type: mixed hyperlipidemia
--- NOTE | 2024-04-10 12:05 | PC.OT ---
OT EVALUATION ORDERS RECEIVED. ABIDING BY STROKE PROTOCOL AND HOLDING OT EVALUATION AT THIS TIME.
[2024-04-10 12:17] LABS: Glucose Point of Care 254 mg/dL (70-110)
[2024-04-10] MEDS: DOPamine drip 400 MG/250 ML PREMIX 47.81 MG IV (12:24)
[2024-04-10] MEDS: glimepiride 2 mg Tablet PO ×2 (12:51→16:42)
[2024-04-10 16:47] LABS: Glucose Point of Care 303 mg/dL (70-110)
--- NOTE | 2024-04-10 18:44 | P.CONIM_ITS ---
<Statement entered by Jaguar Spann MD - 04/27/24 18:29> Patient was evaluated and cared for in conjunction with an advanced practice practitioner. I personally examined the patient and reviewed the chart and all pertinent data including imaging, telemetry, and laboratory results. I discussed the patient in detail with the advanced practice practitioner. Please see their note for complete H&P testing result and agreed upon plan of care for the patient. Providers/Reason For Consult 2 Consulting Physician/Specialty*: Dr. Spann Reason for Consult*: Bradycardia Requesting Physician: Dr. Blount Attending Physician: Bj Phan MD Primary Care Provider: JOSÉ Mata History of Present Illness History of Present Illness Forrest Hart is a 63 year old male who came into the ER with strokelike symptoms. He reported facial droop and slurred speech. He had expressive aphasia in the ER. He was also hypertensive as well. Heart rates were in the 50s at that time. He was given TNKase. IV hydralazine, and placed on a cardene drip. Cardene was discontinued. He was placed on dopamine drip for bradycardia. EKG showed sinus bradycardia with 2nd degree heart block. HR is stayin in the low 50s on my exam. It has been as low as 35. At the time of our visit, he states he is back to baseline. He denies any chest pain or dizziness. Echo with bubble study showed normal EF without intracardiac shunting. Review of Systems 2 Narrative: Consitutional: denies fever, chills, body aches Eyes: Denies changes in vision Card: Denies chest pain, palpitations, irregular heart rhythm, edema, syncope, shortness of breath, orthopnea, leg pain with exertion Resp: Denies shortness of breath, denies hemoptysis, denies cough Musc: Denies extremity pain, denies limited range of motion or recent injury Skin: Denies rash, lesions, or wounds, denies changes to skin color Neuro: Denies nubmness in extremities, h/a, s/s of stroke Medications/Allergies Home Medications ?Medication ?Instructions ?Recorded ?Confirmed ?Last Taken ?Type atorvastatin 40 mg tablet 40 mg PO DAILY #90 tabs 03/1704/10/24 Unknown Rx glipizide 10 mg tablet, extended 10 mg PO DAILY #30 ta bs 04/08/24 04/10/24 Unknown Rx release 24 hr valsartan 320 mg tablet (Diovan) 320 mg PO DAILY #30 t abs 04/08/24 04/10/24 Unknown Rx metformin 1,000 mg tablet 1,000 mg PO BID 04/10/24 Unknown History Allergies Allergy/AdvReac Type Severity Reaction Status Date / Time No Known Allergies Allergy Unverified 04/08/24 08:58 Current Medications Generic Name Dose Route Start Last Admin Trade Name Freq PRN Reason Stop Dose Admin Atorvastatin Calcium 80 mg 04/10/24 09:00 04/10/24 08:58 Atorvastatin 40 Mg Tablet PO 80 mg DAILY MELANI Administration Glimepiride 2 mg 04/10/24 12:20 04/10/24 16:42 Glimepiride 2 Mg Tablet PO 2 mg BIDAC MELANI Administration Hydralazine HCl 10 mg 04/09/24 22:33 04/10/24 07:36 Hydralazine 20 Mg/Ml Inj 1 Ml IVP 10 mg Q4H PRN Administration bp>180/105mmhg Dopamine HCl/Dextrose 400 mg in 250 mls @ 19.125 mls/hr 04/09/24 23:45 04/10/24 16:44 Intropin Drip IV 5 mcg/kg/min CONT MELANI 19.13 mls/hr Titration Protocol 5 MCG/KG/MIN Insulin Human Lispro 0 unit 04/09/24 21:00 04/10/24 18:21 Insulin Lispro 100 Unit/1 Ml SUBCUT Not Given WM&BEDTIME MELANI Protocol Losartan Potassium 100 mg 04/10/24 09:00 04/10/24 08:59 Losartan 50 Mg Tablet PO 100 mg DAILY MELANI Administration Ondansetron HCl 4 mg 04/09/24 20:24 04/10/24 02:08 Ondansetron 2 Mg/Ml Sdv 2 Ml IVP 4 mg Q6H PRN Administration NAUSEA AND VOMITING PFSH Acute 2 PFSH: Medical History Hyperlipemia Diabetes Essential hypertension Surgical History Hx of hernia repair Family History Mother Diabetes mellitus, type 2 Social History Smoking and tobacco/nicotine status: never used tobacco/nicotine Alcohol intake: never Substance/Drug Use: never Adopted: No Caregiver/support person: No Lives independently: Yes Household members: spouse Housing: Manufactured/Mobile home Marital status: Number of children: 1 Number of grandchildren: 22 Highest education level completed: Some College, No Degree service: No Current occupational status: employed Do you think of yourself as: Straight/Heterosexual Current gender identity: Male Vitals/I&O/Wt Last Vital Signs Temp 97.6 F 04/10/24 17:00 Pulse 43 L 04/10/24 18:15 Resp 15 04/10/24 18:15 BP 113/52 04/10/24 18:15 Pulse Ox 93 04/10/24 18:15 O2 Del Method Room Air 04/10/24 17:00 04/10/24 04/10/24 04/10/24 06:59 14:59 22:59 Intake Total 360.000 / 360.000 327.826 / 327.826 73.954 / 401.780 Output Total 825 / 825 275 / 275 Balance -465.000 / -465.000 52.826 / 52.826 73.954 / 126.780 Weight last 48 hrs Weight 224 lb 13.944 oz Weight 224 lb 13.944 oz Weight 220 lb Physical Exam 2 Narrative: General: No apparent distress, healthy appearing, well nourished HENMT: normoceophalic Neck: No carotid bruit bilaterally Muskuloskeletal: Full ROM Lymphatic: no lymphedema noted Respiratory: Normal respiratory effort, clear to auscultation bilaterally throughout all lung lakhani, no use of accessory muscles Cardio: No JVD, bradycardic, regular rhythm, S1 S2 normal, no murmurs, peripheral pulses 2+ throughout GI: Normal to inspection, nondistended Extremities: Full ROM, normal, normal capillary refill, no cyanosis or edema Neuro: Alert and oriented x4 Psych: Affect normal Skin: No rashes or lesions noted, no wounds Data 04/09/24 17:56 04/09/24 17:56 A&P Assessment and plan (1) Essential hypertension: (2) Mobitz (type) II atrioventricular block: (3) Heart block: Plan At this time, patient is asymptomatic. Bradycardia could be due to recent stroke. Recommend continue dopamine drip, wean as tolerated. Avoid dona blocking agents. No acute indication for a pacemaker at this time. Will continue to monitor. Most likely he will need an event monitor in the future to rule out afib. Thank you for allowing us to care for this very pleasant 63 year old gentleman. PDMP PDMP Reviewed: Not Reviewed Consult Attestations 2 Medical Necessity Statement: Patient stay expected to cross 2 midnights due to the above defined care. Coding Level of Care Code Acute Code for [facility] Fwd Diagnoses Essential hypertension I10 Mobitz (type) II atrioventricular block I44.1 Heart block I45.9
--- NOTE | 2024-04-10 19:14 | PC.NURSE ---
Shift SUmmary: By end of shift, patient's NIHSS score is 0. He has walked around the unit with physical therapy and has gotten up twice with staff. Coordination continues to improve. Dopmaine drip remains on, currently at 5mcg. Was as high as 12.5mcg. While on 12.5mcg of dopamine, the patient's rythm was sinus fab. When reduced to 5mcg he develops a type 2 heart block, but is asymptomatic. Patient has refused insulin throughout the day. Nurse has emphasized the importance of taking insulin for blood sugar control. Discussed how uncontrolled diabetes is a major risk factor for strokes, and may have contributed to his current state of health. Patient still refuses insulin at this time.
[2024-04-10 22:06] LABS: Glucose Point of Care 273 mg/dL (70-110)
[2024-04-10] MEDS: insulin lispro 100 unit/1 mL SUBCUT (22:12)
[2024-04-10] MEDS: insulin glargine 100 units/1 mL 10 UNIT SUBCUT (22:13)
--- NOTE | 2024-04-10 22:21 | USCV_ITS ---
Forrest Hart Age: 63 Gender: M : 1960 Exam Date: 04/10/2024 02:05 Ordering Phys: Jaguar Blount MD Technologist: VÍCTOR Exam Location: [facility] – [place] Indication: CVA, slurred speech, confusion BP: 184 / 61 HR: 55 Rhythm: Sinus bradycardia Technical Quality: Adequate MEASUREMENTS (Male / Female) Normal Values 2D ECHO LV Diastolic Diameter PLAX 4.2 cm 4.2 - 5.9 / 3.9 - 5.3 cm IVS Diastolic Thickness 1.8 cm 0.6 - 1.0 / 0.6 - 0.9 cm IVS Systolic Thickness 2.2 cm LVPW Diastolic Thickness 1.6 cm 0.6 - 1.0 / 0.6 - 0.9 cm LVPW Systolic Thickness 2.3 cm LVOT Diameter 2.4 cm LV Ejection Fraction 2D Teich 76.0 % LV Ejection Fraction MOD 4C 70.7 % LV Ejection Fraction MOD 2C 45.2 % LV Ejection Fraction 2C AL 45.3 % LA Diameter 3.5 cm Aorta at Sinotubular Diameter 3.0 cm IVC Diameter 2.0 cm M-MODE LA Ao Ratio MM 1.8 AV Cusp Separation MM 2.4 cm DOPPLER AV Peak Velocity 203.0 cm/s LVOT Peak Velocity 186.0 cm/s AV Area Cont Eq vti 3.7 cm squared AV Area Cont Eq pk 4.0 cm squared MV Peak Velocity 143.0 cm/s MV Area PHT 4.7 cm squared Mitral E to A Ratio 2.2 TV Peak E Velocity 72.0 cm/s PV Peak Velocity 165.0 cm/s FINDINGS Left Ventricle Left ventricle is normal in size. LV systolic function is normal with EF of 60 -65%. No regional wall motion abnormalities are seen. Right Ventricle Normal in size and function Right Atrium Normal in size. Bubble study does not deomonstrate intracardiac shunting Left Atrium Normal in size Mitral Valve Structurally normal mitral valve. Mild mitral regurgitation Aortic Valve Structurally normal aortic valve. Tricuspid Valve Mild tricuspid regurgitation. Insufficient TR jet to calculate RVSP Pulmonic Valve Not well visualized Pericardium Normal Aorta Normal in size IVC Appears to be normal CONCLUSIONS LV systolic function is normal with EF of 60-65% Bubble study does not demonstrate intracardiac shunting Mild tricuspid regurgitation No comparison studies are available. Siva Chery MD (Electronically Signed) Final Date: 10 April 2024 08:21 S
[2024-04-11] VITALS (98 sets, daily range): BP systolic 87–174; BP diastolic 48–114; PULSE 37–70; RESP 1–27; TEMP 36.3–36.9; O2SAT 90–99
--- NOTE | 2024-04-11 02:54 | ECG_ITS ---
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 Measurements Intervals [place] Rate: 48 P: 47 OR: 188 QRS: -40 QRSD: 133 T: -31 QT: 482 QTc: 432 Interpretive Statements COMPLETE HEART BLOCK/ THIRD DEGREE AV BLOCK LEFT AXIS DEVIATION [QRS AXIS < -30] RIGHT BUNDLE BRANCH BLOCK [120+ ms QRS DURATION, UPRIGHT V1, 40+ ms S IN I/aVL/V4/V5/V6] MODERATE VOLTAGE CRITERIA FOR LVH, CONSIDER NORMAL VARIANT [MEETS CRITERIA IN ONE OF: R(aVL), S(V1), R(V5), R(V5/V6)+S(V1)] MODERATE T-WAVE ABNORMALITY, CONSIDER LATERAL ISCHEMIA [-0.1+ mV T-WAVE IN I/aVL/V5/V6] Compared to ECG 04/10/2024 04:23:14 T-wave abnormality now present Possible ischemia now present COMPLETE HEART BLOCK PRESENT NOW Electronically Signed On 04-13-2024 07:59:14 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 [email or web address]
--- NOTE | 2024-04-11 04:05 | PC.NURSE ---
Addendum entered by GENEVIEVE Fiore 04/11/24 04:43: Discussed situation with Dr. Blount. Symptoms have resolved, with HR 58, BP 140/71. Titrated Dopamine down to 5mcg/kg/min. No new orders received. Original Note: Reference from physician notification. Unable to reach Dr. Blount by phone. Left this VOALTE: Forrest Hart, ICU 6. Here for Left sided ischemic stroke. Much like last night, patient is having new PAC's frequently along with his bradycardia (high 40's rate). Currently every other beat is a PAC. He is on dopamine at 7.5 mcg/kg/min, BP is 141/72. I did get an ECG that should flow to chart soon, showed RBB, left axis deviation and sinus arrhythmia.
[2024-04-11] MEDS: glimepiride 2 mg Tablet PO ×2 (06:12→16:43)
[2024-04-11 06:17] LABS: Glucose Point of Care 223 mg/dL (70-110)
[2024-04-11] MEDS: DOPamine drip 400 MG/250 ML PREMIX 28.69 MG IV ×3 (06:55→23:41)
[2024-04-11 08:13] LABS: Basophils % 0.3 %; Eosinophils # 0.1 10^3/uL (0.0-0.8); Eosinophils % 1.4 %; Hematocrit 46.8 % (37-53); Lymphocytes # 2.1 10^3/uL (0.8-4.8); Lymphocytes % 21.3 %; Mean Corpuscular Hemoglobin 30.6 pg (27-33); Mean Corpuscular Volume 87.3 fl (82-101); Mean Platelet Volume 11.4 fL (7.4-10.4); Monocytes # 0.7 10^3/uL (0.2-0.9); Monocytes % 6.7 %; Neutrophils # 6.89 10^3/uL (1.8-7.7); Nucleated Red Blood Cells % 0 %; Platelet Count 191 10^3/cmm (157-399); Red Blood Count 5.36 10^6/uL (3.85-5.65); Red Cell Distribution Width 12.5 % (12.1-15.1); White Blood Count 9.85 10^3/uL (3.29-11.43)
[2024-04-11] MEDS: atorvastatin 40 mg Tablet 80 MG PO (08:24)
[2024-04-11] MEDS: losartan 50 mg Tablet 100 MG PO (08:24)
[2024-04-11] MEDS: insulin lispro 100 unit/1 mL SUBCUT ×4 (08:25→20:34)
[2024-04-11] MEDS: flu vacc pf 24-25 (6 mos+) SYRINGE 45 MCG IM (08:28)
[2024-04-11 08:37] LABS: Anion Gap 15.7 (5-19); Blood Urea Nitrogen 34 mg/dL (8-23); Calcium 8.9 mg/dL (8.5-10.5); Carbon Dioxide 25 mmol/L (22-29); Chloride 99 mmol/L (98-107); Creatinine Clr Calc Pharmacy 79.6949; Glomerular Filtration Rate 61.6 mL/min (90-130); Glucose 265 mg/dL (65-115); Osmolality Calculated 299 mOsm/kg (285-295); Potassium 3.7 mmol/L (3.5-5.1); Sodium 136 mmol/L (136-145)
[2024-04-11 09:19] LABS: Magnesium 1.7 mg/dL (1.7-2.3)
--- NOTE | 2024-04-11 11:58 | PM.PN ---
Subjective Subjective: Patient speech is significantly improved. He is worked well with therapy. From a stroke perspective, he is likely ready to get out of the acute hospital setting. However, he remains on dopamine for heart rate augmentation. Awaiting recommendations from cardiology. Medications: Reviewed: Yes Vitals/I&O/Wt Last Vital Signs Temp 97.6 F 04/11/24 08:30 Pulse 49 L 04/11/24 08:52 Resp 16 04/11/24 08:52 BP 150/75 04/11/24 08:45 Pulse Ox 95 04/11/24 08:52 O2 Del Method Room Air 04/11/24 08:52 04/10/24 04/11/24 04/11/24 22:59 06:59 14:59 Intake Total 189.761 / 517.587 216.213 / 733.800 Balance 189.761 / 242.587 216.213 / 458.800 Weight last 48 hrs Weight 101.5 kg Weight 102 kg Weight 102 kg Weight 99.79 kg Physical Exam Narrative: General: Patient is awake and alert. No acute distress. Head: Normocephalic. Atraumatic. EOM intact. Neck: No JVD. Cardiovascular: No gallops. No murmurs. Bradycardic. Lungs: Clear to auscultation, no use of accessory muscles, no crackles or wheezes. Skin: No jaundice. No rashes. Abdomen: Normal bowel sounds, abdomen soft and nontender. Extremities: No cyanosis or clubbing. Musculoskeletal: No swollen or erythematous joints. Neurological: Moves all 4 extremities. No myoclonus. Cranial nerves II through XII grossly intact. Data 04/11/24 07:59 04/11/24 07:59 A&P Assessment and plan (1) Heart block: Continue dopamine infusion Continuous telemetry monitoring Closely monitor electrolytes Follow-up cardiology recommendations (2) Cerebrovascular accident: Status post TNKase Echo negative for PFO Continue statin treatment Start antiplatelets Stroke education (3) Expressive aphasia: Expressive aphasia has significantly improved (4) Diabetes: Type 2 diabetes mellitus, uncontrolled with hyperglycemia A1c 10.8 Continue Lantus tonight Continue glimepiride Sliding-scale correction Qualifiers: Diabetes mellitus type: type 2 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: without 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 use Diabetes mellitus complication status: with hyperglycemia Qualified Code(s): E11.65 - Type 2 diabetes mellitus with hyperglycemia (5) Essential hypertension: Continue losartan Likely benefit from additional agent, waiting to see plan for cardiac arrhythmia first (6) Hyperlipemia: Continue statin Qualifiers: Hyperlipidemia type: mixed hyperlipidemia Qualified Code(s): E78.2 - Mixed hyperlipidemia Plan DVT prophylaxis: SCD PDMP PDMP Reviewed: Not Reviewed Attestations Medical Necessity Statement*: Patient requires ongoing hospitalization for continued augmentation of his heart rate with dopamine, blood pressure monitoring, and supportive care. Critical Care Time: The high probability of a clinically significant, sudden or life threatening deterioration of the patient's neuro, cardiovascular system(s) required my full and direct attention, intervention and personal management. The critical care time is as shown. 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
[2024-04-11 12:00] LABS: Glucose Point of Care 230 mg/dL (70-110)
[2024-04-11 12:00] LABS: Glucose Point of Care 239 mg/dL (70-110)
[2024-04-11] MEDS: magnesium sulfate premix 2 GM/50 ML PIGGYBACK IV (12:37)
[2024-04-11] MEDS: potassium chloride ER 20 mEq Tablet 40 MEQ PO (12:37)
--- NOTE | 2024-04-11 15:46 | P.PN_ITS ---
<Statement entered by Jaguar Spann MD - 04/12/24 00:33> Patient was evaluated and cared for in conjunction with an advanced practice practitioner. I personally examined the patient and reviewed the chart and all pertinent data including imaging, telemetry, and laboratory results. I discussed the patient in detail with the advanced practice practitioner. Please see their note for complete H&P testing result and agreed upon plan of care for the patient. I have detailed discussion with the patient heart rate has not improved he remains on dopamine in between 7-12 mics. Once below 12 mics patient exhibit Mobitz type II heart block He has been rule out for reversible etiology for heart block Heart rate remains 40s to 50s on dopamine Patient had a lot of question regarding pacemaker which were answered GENERAL: Patient is alert, awake and oriented x3. HEART: Regular S1 and S2. No murmur, rub or gallop. LUNGS: Clear to auscultate bilaterally. CENTRAL NERVOUS SYSTEM: Grossly nonfocal. EXTREMITIES: Lower extremities with out edema bilaterally. Assessment and plan CVA Symptomatic bradycardia requiring dopamine Mobitz type II heart block For the last 36 hours the patient remains on dopamine reversible causes for heart block rule out In my opinion clinical judgment patient requires permanent pacemaker placement. Unfortunately we do not have facility for permanent pacemaker placement and therefore will transfer patient. Patient would like to consider [facility]. Patient can be transferred if bed available Subjective 2 Subjective: Patient still bradycardic. Dopamine had to be titrated up due to patient's heart rate got in the 30s. When his dopamine was at a lower dose his heart block returned and when it was increased his heart block resolved. He denies any significant history of CAD chest pain or shortness of breath. Denies any dizziness or syncopal episodes in the past. He is asymptomatic at this time. Vitals/I&O/Wt Last Vital Signs Temp 97.6 F 04/11/24 08:30 Pulse 49 L 04/11/24 08:52 Resp 16 04/11/24 08:52 BP 150/75 04/11/24 08:45 Pulse Ox 95 04/11/24 08:52 O2 Del Method Room Air 04/11/24 08:52 04/11/24 04/11/24 04/11/24 06:59 14:59 22:59 Intake Total 216.213 / 733.800 243.865 / 243.865 Balance 216.213 / 458.800 243.865 / 243.865 Weight last 48 hrs Weight 223 lb 12.307 oz Weight 224 lb 13.944 oz Weight 224 lb 13.944 oz Weight 220 lb Physical Exam 2 Narrative: General: No apparent distress, healthy appearing, well nourished HENMT: normoceophalic Neck: No carotid bruit bilaterally Muskuloskeletal: Full ROM Lymphatic: no lymphedema noted Respiratory: Normal respiratory effort, clear to auscultation bilaterally throughout all lung lakhani, no use of accessory muscles Cardio: No JVD, bradycardic, regular rhythm, S1 S2 normal, no murmurs, peripheral pulses 2+ throughout GI: Normal to inspection, nondistended Extremities: Full ROM, normal, normal capillary refill, no cyanosis or edema Neuro: Alert and oriented x4 Psych: Affect normal Skin: No rashes or lesions noted, no wounds Data 04/11/24 07:59 04/11/24 07:59 A&P Assessment and plan (1) Essential hypertension: (2) Mobitz (type) II atrioventricular block: (3) Heart block: Plan Patient requires dopamine to keep heart rate at least in the 50s. When it is titrated down he goes back into heart block. It is our recommendation that he proceeds with a pacemaker. He states he would like to go to [place] at [facility]. At this time the floor is checking with his insurance to see if this is covered. For now, continue dopamine drip. PDMP PDMP Reviewed: Not Reviewed Attestations 2 Medical Necessity Statement*: Deferred to primary. Coding Level of Care Code Acute Code for g Fwd Diagnoses Essential hypertension I10 Mobitz (type) II atrioventricular block I44.1 Heart block I45.9
[2024-04-11 17:58] LABS: Glucose Point of Care 205 mg/dL (70-110)
[2024-04-11 20:25] LABS: Glucose Point of Care 191 mg/dL (70-110)
[2024-04-11] MEDS: insulin glargine 100 units/1 mL 15 UNIT SUBCUT (20:35)
--- NOTE | 2024-04-11 21:14 | PM.PN ---
Subjective Subjective: I thought he would get to go home but his heart rate gets down in the 30s whenever they take him off of dopamine. He will have to go outside for pacemaker as we cannot do it here right now. He is going to go to [facility]. Vitals/I&O/Wt Last Vital Signs Temp 97.3 F L 04/11/24 11:00 Pulse 51 L 04/11/24 19:00 Resp 18 04/11/24 19:00 BP 136/69 04/11/24 19:00 Pulse Ox 94 04/11/24 19:00 O2 Del Method Room Air 04/11/24 11:00 04/11/24 04/11/24 04/11/24 06:59 14:59 22:59 Intake Total 216.213 / 733.800 243.865 / 243.865 Output Total 400 / 400 Balance 216.213 / 458.800 -156.135 / -156.135 Weight last 48 hrs Weight 223 lb 12.307 oz Weight 224 lb 13.944 oz Physical Exam Narrative: He has a hesitating speech pattern but we can carry on a conversation pretty well. 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 He has no focal findings. He continues to have receptive speech deficit but it is better than it was. Data 04/11/24 07:59 04/11/24 07:59 A&P Assessment and plan (1) Left acute arterial ischemic stroke, MCA (middle cerebral artery): Acute left middle cerebral artery stroke with receptive aphasia gradually improving. He can repeat a simple but not a complex phrase. Mild word searching. No motor findings. He has severe bradycardia and is requiring dopamine to keep his heart rate up. Plan transfer for pacemaker. I will need to follow-up in my office in June or July. I think that his antiplatelet therapy is being held in anticipation of pacemaker but after that is completed he should be on Plavix for 3 weeks, aspirin 81 mg and a atorvastatin. (2) Receptive aphasia: PDMP PDMP Reviewed: Not Reviewed Attestations Medical Necessity Statement*: Acute stroke status post TNK now with severe bradycardia Coding Level of Care Code Acute Code for [facility] Fwd Diagnoses Left acute arterial ischemic stroke, MCA (middle cerebral artery) I63.512 Receptive aphasia R47.01
[2024-04-12] VITALS (95 sets, daily range): BP systolic 115–199; BP diastolic 46–95; PULSE 39–71; RESP 0–31; TEMP 36.4–37.1; O2SAT 86–97; BMI 30.3
[2024-04-12] MEDS: hyDRALAzine 20 mg/mL INJ 1 mL 10 MG IVP ×2 (05:27→17:35)
[2024-04-12] MEDS: glimepiride 2 mg Tablet PO ×2 (06:42→17:35)
[2024-04-12 06:45] LABS: Basophils # 0.1 10^3/uL (0.0-0.1); Basophils % 0.5 %; Eosinophils # 0.2 10^3/uL (0.0-0.8); Eosinophils % 2.2 %; Hematocrit 49.3 % (37-53); Lymphocytes # 1.7 10^3/uL (0.8-4.8); Lymphocytes % 18.9 %; Mean Corpuscular HGB Conc 33.9 g/dL (30-55); Mean Corpuscular Hemoglobin 30.1 pg (27-33); Mean Corpuscular Volume 88.8 fl (82-101); Monocytes # 0.6 10^3/uL (0.2-0.9); Monocytes % 6.2 %; Neutrophils # 6.63 10^3/uL (1.8-7.7); Nucleated Red Blood Cells % 0 %; Platelet Count 207 10^3/cmm (157-399); Red Blood Count 5.55 10^6/uL (3.85-5.65); Red Cell Distribution Width 12.4 % (12.1-15.1); White Blood Count 9.21 10^3/uL (3.29-11.43)
[2024-04-12 06:57] LABS: Alanine Aminotransferase 9 U/L (0-41); Albumin Level 3.8 g/dL (3.5-5.2); Alkaline Phosphatase 85 U/L (40-130); Anion Gap 15.7 (5-19); Aspartate Amino Transferase 10 U/L (0-40); Blood Urea Nitrogen 27 mg/dL (8-23); Calcium 9.1 mg/dL (8.5-10.5); Carbon Dioxide 22 mmol/L (22-29); Chloride 99 mmol/L (98-107); Creatinine Clr Calc Pharmacy 106.2599; Globulin 2.7 g/dL (1.3-4.6); Glomerular Filtration Rate 85.8 mL/min (90-130); Glucose 171 mg/dL (65-115); Osmolality Calculated 285 mOsm/kg (285-295); Potassium 3.7 mmol/L (3.5-5.1); Sodium 133 mmol/L (136-145); Total Bilirubin 0.9 mg/dL (0.15-1.2); Total Protein 6.5 g/dL (6.6-8.7)
[2024-04-12 07:34] LABS: Glucose Point of Care 176 mg/dL (70-110)
[2024-04-12] MEDS: atorvastatin 40 mg Tablet 80 MG PO (08:10)
[2024-04-12] MEDS: losartan 50 mg Tablet 100 MG PO (08:10)
[2024-04-12] MEDS: insulin lispro 100 unit/1 mL SUBCUT ×2 (08:10→11:17)
[2024-04-12] MEDS: DOPamine drip 400 MG/250 ML PREMIX 28.69 MG IV (08:35)
--- NOTE | 2024-04-12 09:53 | PM.PN ---
Subjective Subjective: Patient reports speech seems to be back to his normal. Denies any other neurologic deficits. He remains dependent on dopamine drip for heart rate augmentation. Plan is to transfer which cardiology had planned to arrange yesterday; will follow up with cardiology team this morning. Medications: Reviewed: Yes Vitals/I&O/Wt Last Vital Signs Temp 98.8 F 04/12/24 09:15 Pulse 47 L 04/12/24 09:15 Resp 18 04/12/24 09:15 BP 135/70 04/12/24 09:15 Pulse Ox 94 04/12/24 09:15 O2 Del Method Room Air 04/12/24 09:15 04/11/24 04/12/24 04/12/24 22:59 06:59 14:59 Intake Total 293.865 / 293.865 237.171 / 531.036 490.956 / 490.956 Output Total 650 / 650 350 / 1000 Balance -356.135 / -356.135 -112.829 / -468.964 490.956 / 490.956 Weight last 48 hrs Weight 101.5 kg Weight 101.5 kg Physical Exam Narrative: General: Patient is awake and alert. No acute distress. Pleasant. Head: Normocephalic. Atraumatic. Neck: No JVD. Cardiovascular: No gallops. No murmurs. Bradycardic. Lungs: Clear to auscultation, no use of accessory muscles, no crackles or wheezes. Skin: No jaundice. No rashes. Abdomen: Normal bowel sounds, abdomen soft and nontender. Extremities: No cyanosis or clubbing. Musculoskeletal: No swollen or erythematous joints. Neurological: Moves all 4 extremities. No myoclonus. Cranial nerves II through XII grossly intact. Data 04/12/24 06:25 04/12/24 06:25 A&P Assessment and plan (1) Heart block: Continue dopamine infusion Continuous telemetry monitoring Closely monitor electrolytes Follow up with cardiology regarding transfer plans; pt preference is [facility] (2) Cerebrovascular accident: Status post TNKase Echo negative for PFO Continue antiplatelet and statin (3) Expressive aphasia: Expressive aphasia appears resolved (4) Diabetes: Type 2 diabetes mellitus, uncontrolled with hyperglycemia A1c 10.8 Continue Lantus tonight Continue glimepiride Sliding-scale correction Qualifiers: Diabetes mellitus type: type 2 Diabetes mellitus fpc insulin use: without terminologist use Diabetes mellitus complication status: with hyperglycemia Qualified Code(s): E11.65 - Type 2 diabetes mellitus with hyperglycemia (5) Essential hypertension: Continue losartan PRN hydralazine Likely benefit from additional agent, waiting to see plan for cardiac arrhythmia first (6) Hyperlipemia: Continue statin Qualifiers: Hyperlipidemia type: mixed hyperlipidemia Qualified Code(s): E78.2 - Mixed hyperlipidemia Plan DVT prophylaxis: SCD PDMP PDMP Reviewed: Not Reviewed Attestations Medical Necessity Statement*: Patient requires ongoing hospitalization for continued augmentation of his heart rate with dopamine, blood pressure monitoring, and supportive care. Critical Care Time: The high probability of a clinically significant, sudden or life threatening deterioration of the patient's cardiovascular system(s) required my full and direct attention, intervention and personal management. The critical care time is as shown. 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
[2024-04-12 10:20] LABS: Magnesium 1.8 mg/dL (1.7-2.3)
[2024-04-12] MEDS: magnesium sulfate premix 2 GM/50 ML PIGGYBACK IV (10:41)
[2024-04-12] MEDS: potassium chloride ER 20 mEq Tablet 40 MEQ PO (10:42)
[2024-04-12 11:15] LABS: Glucose Point of Care 171 mg/dL (70-110)
[2024-04-12] MEDS: aspirin 81 mg EC Tablet PO (11:17)
--- NOTE | 2024-04-12 11:18 | PC.NURSE ---
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
--- NOTE | 2024-04-12 14:05 | P.PN_ITS ---
<Statement entered by Jaguar Spann MD - 04/27/24 17:19> Patient was evaluated and cared for in conjunction with an advanced practice practitioner. I personally examined the patient and reviewed the chart and all pertinent data including imaging, telemetry, and laboratory results. I discussed the patient in detail with the advanced practice practitioner. Please see their note for complete H&P testing result and agreed upon plan of care for the patient. Documented by User: Deann Fenton NP 04/12/24 14:07 Subjective 2 Subjective: Patient currently on dopamine at 5. Heart rate currently in the 50s. Patient relies on dopamine to keep heart rate in this range. Vitals/I&O/Wt Last Vital Signs Temp 98.7 F 04/12/24 11:15 Pulse 55 L 04/12/24 12:00 Resp 17 04/12/24 12:00 BP 141/61 04/12/24 12:00 Pulse Ox 93 04/12/24 12:00 O2 Del Method Room Air 04/12/24 12:00 04/11/24 04/12/24 04/12/24 22:59 06:59 14:59 Intake Total 293.865 / 293.865 237.171 / 531.036 490.956 / 490.956 Output Total 650 / 650 350 / 1000 300 / 300 Balance -356.135 / -356.135 -112.829 / -468.964 190.956 / 190.956 Weight last 48 hrs Weight 223 lb 12.307 oz Weight 223 lb 12.307 oz Physical Exam 2 Narrative: General: No apparent distress, healthy appearing, well nourished HENMT: normoceophalic Neck: No carotid bruit bilaterally Muskuloskeletal: Full ROM Lymphatic: no lymphedema noted Respiratory: Normal respiratory effort, clear to auscultation bilaterally throughout all lung lakhani, no use of accessory muscles Cardio: No JVD, bradycardic, regular rhythm, S1 S2 normal, no murmurs, peripheral pulses 2+ throughout GI: Normal to inspection, nondistended Extremities: Full ROM, normal, normal capillary refill, no cyanosis or edema Neuro: Alert and oriented x4 Psych: Affect normal Skin: No rashes or lesions noted, no wounds Data 04/12/24 06:25 04/13/24 04:49 A&P Assessment and plan (1) Essential hypertension: (2) Mobitz (type) II atrioventricular block: (3) Heart block: Plan Patient requires dopamine to keep heart rate at least in the 50s. When it is titrated down he goes back into heart block. It is our recommendation that he proceeds with a pacemaker. He states he would like to go to [facility] at [facility]. They do not have any beds at this time. Dr. Phan is possibly looking at [facility] as well for other options. PDMP PDMP Reviewed: Not Reviewed Attestations 2 Medical Necessity Statement*: Deferred to primary. Coding Level of Care Code 71701 Diagnoses Essential hypertension I10 Mobitz (type) II atrioventricular block I44.1 Heart block I45.9 Time Spent (min) 15 Documented by User: Zuleika Walsh MD 04/14/24 15:24 Data 04/12/24 06:25 04/13/24 04:49 A&P Assessment and plan (1) Essential hypertension: (2) Mobitz (type) II atrioventricular block: (3) Heart block: Plan Patient requires dopamine to keep heart rate at least in the 50s. When it is titrated down he goes back into heart block. It is our recommendation that he proceeds with a pacemaker. He states he would like to go to [facility] [facility] [place]. They do not have any beds at this time. Dr. Phan is possibly looking at [facility] as well for other options. Pt seen, reviewed progress, current clincial status Pt remained dependent on Dopamine for heart rate..Underlying rhythm is 2:1 AV block,, V rate 40s on Dopamine 3 mcg await to be transferred to outside facility for PPM PDMP PDMP Reviewed: Not Reviewed Attestations 2 Medical Necessity Statement*: Completet heart block... For PPM Coding Level of Care Code 10315 Diagnoses Essential hypertension I10 Mobitz (type) II atrioventricular block I44.1 Heart block I45.9 Time Spent (min) 15
[2024-04-12 17:46] LABS: Glucose Point of Care 109 mg/dL (70-110)
[2024-04-12 19:49] LABS: Glucose Point of Care 129 mg/dL (70-110)
[2024-04-12] MEDS: acetaminophen 500 mg Tablet PO (19:58)
[2024-04-12] MEDS: insulin glargine 100 units/1 mL 15 UNIT SUBCUT (20:20)
[2024-04-12] MEDS: DOPamine drip 400 MG/250 ML PREMIX 19.13 MG IV (21:26)
[2024-04-13] VITALS (60 sets, daily range): BP systolic 103–179; BP diastolic 45–88; PULSE 38–85; RESP 3–23; TEMP 36.5–36.9; O2SAT 90–96
[2024-04-13 06:12] LABS: Albumin Level 3.7 g/dL (3.5-5.2); Anion Gap 14.2 (5-19); Blood Urea Nitrogen 23 mg/dL (8-23); Calcium 9.4 mg/dL (8.5-10.5); Carbon Dioxide 24 mmol/L (22-29); Chloride 102 mmol/L (98-107); Creatinine Clr Calc Pharmacy 106.2599; Glomerular Filtration Rate 85.8 mL/min (90-130); Glucose 135 mg/dL (65-115); Phosphorus 3.3 mg/dL (2.5-4.5); Potassium 4.2 mmol/L (3.5-5.1); Sodium 136 mmol/L (136-145)
[2024-04-13] MEDS: glimepiride 2 mg Tablet PO ×2 (06:29→17:48)
[2024-04-13 07:45] LABS: Glucose Point of Care 129 mg/dL (70-110)
[2024-04-13] MEDS: aspirin 81 mg EC Tablet PO (09:10)
[2024-04-13] MEDS: losartan 50 mg Tablet 100 MG PO (09:10)
[2024-04-13] MEDS: atorvastatin 40 mg Tablet 80 MG PO (09:10)
--- NOTE | 2024-04-13 11:40 | P.PN_ITS ---
Subjective 2 Subjective: Patient denies any new complaints. He is eager to get his pacemaker so he can get out of the hospitals. He is pending transfer to facility which is the capability to place pacemakers. We are hoping for [place] on Monday. He remains on dopamine for heart rate augmentation. He denies other new complaints. Medications: Reviewed: Yes Vitals/I&O/Wt Last Vital Signs Temp 98.4 F 04/13/24 08:00 Pulse 74 04/13/24 09:00 Resp 20 H 04/13/24 09:00 BP 146/75 04/13/24 09:10 Pulse Ox 92 04/13/24 09:00 O2 Del Method Room Air 04/13/24 09:00 04/12/24 04/13/24 04/13/24 22:59 06:59 14:59 Intake Total 245.183 / 736.139 240 / 240 Output Total 400 / 700 350 / 350 Balance 245.183 / 436.139 -400 / 36.139 -110 / -110 Weight last 48 hrs Weight 98.3 kg Weight 101.5 kg Physical Exam 2 Narrative: General: Patient is awake and alert. In bed. Head: Normocephalic. Atraumatic. Neck: No JVD. Cardiovascular: No gallops. No murmurs. Bradycardic. Lungs: Clear to auscultation, no use of accessory muscles, no crackles or wheezes. Skin: No jaundice. No rashes. Abdomen: Normal bowel sounds, abdomen soft and nontender. Extremities: No cyanosis or clubbing. Musculoskeletal: No swollen or erythematous joints. Neurological: Moves all 4 extremities. No myoclonus. Data 04/12/24 06:25 04/13/24 04:49 A&P Assessment and plan (1) Heart block: Continue dopamine infusion Continuous telemetry monitoring Closely monitor electrolytes, potassium mag okay, will give lab holiday tomorrow Patient is pending transfer to [place], hopefully out of the bed on Monday (2) Cerebrovascular accident: Status post TNKase Continue antiplatelet and statin (3) Expressive aphasia: Symptoms are essentially resolved (4) Diabetes: Type 2 diabetes mellitus, uncontrolled with hyperglycemia A1c 10.8 Continue Lantus tonight Continue glimepiride Sliding-scale correction Qualifiers: Diabetes mellitus type: type 2 Diabetes mellitus fci insulin use: without terminal computer operator use Diabetes mellitus complication status: with hyperglycemia Qualified Code(s): E11.65 - Type 2 diabetes mellitus with hyperglycemia (5) Essential hypertension: Continue losartan PRN hydralazine Likely benefit from additional agent once heart rate is fixed (6) Hyperlipemia: Continue statin Qualifiers: Hyperlipidemia type: mixed hyperlipidemia Qualified Code(s): E78.2 - Mixed hyperlipidemia Plan DVT prophylaxis: SCD PDMP PDMP Reviewed: Not Reviewed Attestations 2 Medical Necessity Statement*: Patient requires ongoing hospitalization for continued augmentation of his heart rate with dopamine, blood pressure monitoring, and supportive care. Critical Care Time: The high probability of a clinically significant, sudden or life threatening deterioration of the patient's cardiovascular system(s) required my full and direct attention, intervention and personal management. The critical care time is as shown. This time is in addition to time spent performing any reported procedures but includes the following: [x] Data and vital sign review and interpretation [x] Patient assessment, examination and intervention [x] Documentation [x] Medication orders and management Critical Care Time (min): 36 Coding Level of Care Code Acute Code for [facility] Fwd Diagnoses Heart block I45.9 Cerebrovascular accident I63.9 Expressive aphasia R47.01 Type 2 diabetes mellitus with hyperglycemia, without long-term current use of insulin E11.65 Diabetes mellitus type: type 2 Diabetes mellitus fci insulin use: without terminal computer operator use Diabetes mellitus complication status: with hyperglycemia Essential hypertension I10 Mixed hyperlipidemia E78.2 Hyperlipidemia type: mixed hyperlipidemia
[2024-04-13 12:14] LABS: Glucose Point of Care 160 mg/dL (70-110)
[2024-04-13] MEDS: ondansetron 2 mg/ML SDV 2 mL 4 MG IVP (12:17)
[2024-04-13] MEDS: DOPamine drip 400 MG/250 ML PREMIX 19.13 MG IV (12:18)
[2024-04-13] MEDS: insulin lispro 100 unit/1 mL SUBCUT ×2 (12:19→20:09)
[2024-04-13 17:44] LABS: Glucose Point of Care 117 mg/dL (70-110)
[2024-04-13 19:49] LABS: Glucose Point of Care 200 mg/dL (70-110)
[2024-04-13] MEDS: insulin glargine 100 units/1 mL 15 UNIT SUBCUT (20:09)
[2024-04-14] VITALS (97 sets, daily range): BP systolic 102–159; BP diastolic 54–113; PULSE 39–101; RESP 0–24; TEMP 36.6–37.3; O2SAT 76–97
[2024-04-14] MEDS: glimepiride 2 mg Tablet PO ×2 (06:19→17:59)
[2024-04-14] MEDS: DOPamine drip 400 MG/250 ML PREMIX 11.48 MG IV (06:24)
[2024-04-14 07:43] LABS: Glucose Point of Care 101 mg/dL (70-110)
[2024-04-14] MEDS: aspirin 81 mg EC Tablet PO (08:41)
[2024-04-14] MEDS: atorvastatin 40 mg Tablet 80 MG PO (08:41)
[2024-04-14] MEDS: losartan 50 mg Tablet 100 MG PO (08:41)
--- NOTE | 2024-04-14 09:55 | PM.PN ---
Subjective Subjective: Patient remains on dopamine drip for heart rate augmentation. He denies any complaints this morning. Reports stroke symptoms have completely resolved. He is eager to get a pacemaker so he can get home. Reports good appetite. Denies other new complaints Spoke with [facility] in [place] yesterday. They are interested in transfer and requested we call back early Monday to see if a bed would be available. Patient's primary preference he states is still [facility] in [place]. They had also requested we call back Monday to see if a bed would be available. I discussed that both hospitals were interested in patient would like to try [place] for swelling Monday. He is okay to go to [facility] in [place] if there is no bed available in [place] tomorrow morning. I did discuss since this can be high on Monday mornings in the hospital and sometimes this afternoon until beds becomes opening at the tertiary hospitals. He understands this. Medications: Reviewed: Yes Vitals/I&O/Wt Last Vital Signs Temp 97.9 F 04/14/24 07:45 Pulse 58 L 04/14/24 08:20 Resp 16 04/14/24 08:20 BP 124/77 04/14/24 08:41 Pulse Ox 94 04/14/24 08:20 O2 Del Method Room Air 04/14/24 08:20 O2 Flow Rate 2 04/13/24 11:00 04/13/24 04/14/24 04/14/24 22:59 06:59 14:59 Intake Total 305.999 / 915.999 168.182 / 1084.181 Output Total 250 / 600 400 / 1000 Balance 55.999 / 315.999 -231.818 / 84.181 Weight last 48 hrs Weight 98 kg Weight 98.3 kg Physical Exam Narrative: General: Patient is awake and alert. In bed. No acute distress. Conversational. Head: Normocephalic. Atraumatic. Neck: No JVD. Cardiovascular: No gallops. No murmurs. Bradycardic. Lungs: Clear to auscultation, no use of accessory muscles, no crackles or wheezes. Skin: No jaundice. No rashes. Abdomen: Normal bowel sounds, abdomen soft and nontender. Extremities: No cyanosis or clubbing. Musculoskeletal: No swollen or erythematous joints. Neurological: Moves all 4 extremities. No myoclonus. Data 04/12/24 06:25 04/13/24 04:49 A&P Assessment and plan (1) Heart block: Continue dopamine infusion Continuous telemetry monitoring Patient needs pacemaker per cardiology, service not available here at [facility] Patient's been discussed with [facility] in [facility] as well as [facility] ([employer] Deann Fenton discussed patient with [place] [facility] on Monday); will need to follow-up with [facility] on Monday see if bed is available (2) Cerebrovascular accident: Status post TNKase Stroke deficits have resolved Continue antiplatelet and statin (3) Diabetes: Type 2 diabetes mellitus, uncontrolled with hyperglycemia A1c 10.8 Continue Lantus Continue glimepiride Sliding-scale correction Qualifiers: Diabetes mellitus type: type 2 Diabetes mellitus director long term care insulin use: without penitentiary use Diabetes mellitus complication status: with hyperglycemia Qualified Code(s): E11.65 - Type 2 diabetes mellitus with hyperglycemia (4) Essential hypertension: Continue losartan PRN hydralazine Likely benefit from additional agent once heart rate is fixed (5) Hyperlipemia: Continue statin Qualifiers: Hyperlipidemia type: mixed hyperlipidemia Qualified Code(s): E78.2 - Mixed hyperlipidemia (6) Expressive aphasia: Resolved Plan DVT prophylaxis: Lovenox PDMP PDMP Reviewed: Not Reviewed Attestations Medical Necessity Statement*: Patient requires ongoing hospitalization for continued augmentation of his heart rate with dopamine, blood pressure monitoring, and supportive care. Critical Care Time: The high probability of a clinically significant, sudden or life threatening deterioration of the patient's cardiovascular system(s) required my full and direct attention, intervention and personal management. The critical care time is as shown. This time is in addition to time spent performing any reported procedures but includes the following: [x] Data and vital sign review and interpretation [x] Patient assessment, examination and intervention [x] Documentation [x] Medication orders and management Critical Care Time (min): 32 Coding Level of Care Code Acute Code for [facility] Fwd Diagnoses Heart block I45.9 Cerebrovascular accident I63.9 Type 2 diabetes mellitus with hyperglycemia, without long-term current use of insulin E11.65 Diabetes mellitus type: type 2 Diabetes mellitus penitentiary insulin use: without director long term care use Diabetes mellitus complication status: with hyperglycemia Essential hypertension I10 Mixed hyperlipidemia E78.2 Hyperlipidemia type: mixed hyperlipidemia Expressive aphasia R47.01
[2024-04-14 12:19] LABS: Glucose Point of Care 137 mg/dL (70-110)
--- NOTE | 2024-04-14 15:25 | P.PN_ITS ---
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 Patient remained stable cardiovascular point of view while on low-dose of dopamine. Remains in 2: 1 AV block and heart rate is in the 40s on dopamine mean low-dose. Asymptomatic from cardiovascular point of view. Blood pressure stable. Medications: Medication Review Details: Current medication reviewed Vitals/I&O/Wt Last Vital Signs Temp 97.9 F 04/14/24 07:45 Pulse 43 L 04/14/24 12:15 Resp 16 04/14/24 12:15 BP 128/65 04/14/24 12:00 Pulse Ox 94 04/14/24 11:45 O2 Del Method Room Air 04/14/24 11:15 O2 Flow Rate 2 04/13/24 11:00 04/14/24 04/14/24 04/14/24 06:59 14:59 22:59 Intake Total 168.182 / 1084.181 454.147 / 454.147 Output Total 400 / 1000 Balance -231.818 / 84.181 454.147 / 454.147 Weight last 48 hrs Weight 216 lb 0.848 oz Weight 216 lb 11.43 oz Physical Exam 2 Narrative: General: No apparent distress, healthy appearing, well nourished Respiratory: Normal respiratory effort, clear to auscultation bilaterally throughout all lung lakhani, no use of accessory muscles Cardio: No JVD, bradycardic, regular rhythm, S1 S2 normal, no murmurs, peripheral pulses 2+ throughout GI: Normal to inspection, nondistended Extremities: Full ROM, normal, normal capillary refill, no cyanosis or edema Neuro: Alert and oriented x3 Data 04/12/24 06:25 04/13/24 04:49 A&P Assessment and plan (1) Mobitz (type) II atrioventricular block: (2) Heart block: Plan 63-year-old male patient with symptomatic bradycardia with 2:1 heart block. Currently stable from cardiovascular point of view on low-dose of dopamine. No angina or heart failure symptoms. Patient is awaiting to be transferred to an outlying facility for permanent pacemaker. For now to continue the same management. PDMP PDMP Reviewed: Not Reviewed Attestations 2 Medical Necessity Statement*: Heart block, symptomatic bradycardia Coding Level of Care Code 08701 Diagnoses Mobitz (type) II atrioventricular block I44.1 Heart block I45.9 Time Spent (min) 10
[2024-04-14 17:33] LABS: Glucose Point of Care 150 mg/dL (70-110)
[2024-04-14] MEDS: insulin lispro 100 unit/1 mL SUBCUT ×2 (17:59→20:39)
--- NOTE | 2024-04-14 18:11 | PC.NURSE ---
Shift Summary: uneventful shift. Occasionally up out of bed. Ambulated about 500 feet at a time with no complications. Reduced from 3mcg of dopamine down to 2.5mcg. CUrrently on waiting list at [facility] in [place] and [facility] in [place].
[2024-04-14 20:25] LABS: Glucose Point of Care 167 mg/dL (70-110)
[2024-04-14] MEDS: enoxaparin 40 mg/0.4 mL Syringe SUBCUT (20:39)
[2024-04-14] MEDS: insulin glargine 100 units/1 mL 15 UNIT SUBCUT (20:40)
[2024-04-15] VITALS (43 sets, daily range): BP systolic 118–194; BP diastolic 65–86; PULSE 41–82; RESP 7–28; TEMP 36.6; O2SAT 82–98
--- NOTE | 2024-04-15 05:28 | W.PM.EVENTAC ---
Event Note Event Note: Received a call from Radha Mcgarry at 5 AM They were asking about information regarding the patient, Since I have admitted the patient I was able to tell them about the progress since 04/09 Currently patient is in third-degree heart block requiring pacemaker, Accepting doctor Dr Morales Transfer summary to be done by the primary attending
[2024-04-15 05:33] LABS: Basophils # 0.1 10^3/uL (0.0-0.1); Basophils % 0.9 %; Eosinophils # 0.2 10^3/uL (0.0-0.8); Eosinophils % 2.9 %; Hematocrit 48.6 % (37-53); Lymphocytes # 2.1 10^3/uL (0.8-4.8); Lymphocytes % 25.8 %; Mean Corpuscular HGB Conc 33.3 g/dL (30-55); Mean Corpuscular Hemoglobin 30.8 pg (27-33); Mean Corpuscular Volume 92.4 fl (82-101); Mean Platelet Volume 11.3 fL (7.4-10.4); Monocytes # 0.7 10^3/uL (0.2-0.9); Monocytes % 8.7 %; Neutrophils # 4.94 10^3/uL (1.8-7.7); Neutrophils % 61.5 %; Nucleated Red Blood Cells % 0 %; Platelet Count 198 10^3/cmm (157-399); Red Blood Count 5.26 10^6/uL (3.85-5.65); Red Cell Distribution Width 12.8 % (12.1-15.1); White Blood Count 8.03 10^3/uL (3.29-11.43)
[2024-04-15 05:57] LABS: Albumin Level 3.5 g/dL (3.5-5.2); Anion Gap 13.7 (5-19); Blood Urea Nitrogen 19 mg/dL (8-23); Calcium 8.9 mg/dL (8.5-10.5); Carbon Dioxide 24 mmol/L (22-29); Chloride 104 mmol/L (98-107); Creatinine Clr Calc Pharmacy 94.0978; Glucose 86 mg/dL (65-115); Magnesium 1.8 mg/dL (1.7-2.3); Phosphorus 3.1 mg/dL (2.5-4.5); Potassium 3.7 mmol/L (3.5-5.1); Sodium 138 mmol/L (136-145)
--- NOTE | 2024-04-15 06:59 | PC.NURSE ---
Report called to Cleopatra Tello RN at [facility]. Phone number is [phone].
[2024-04-15] MEDS: DOPamine drip 400 MG/250 ML PREMIX 9.56 MG IV (07:39)
[2024-04-15 08:00] LABS: Glucose Point of Care 104 mg/dL (70-110)
[2024-04-15] MEDS: losartan 50 mg Tablet 100 MG PO (08:09)
[2024-04-15] MEDS: atorvastatin 40 mg Tablet 80 MG PO (08:09)
[2024-04-15] MEDS: glimepiride 2 mg Tablet PO (08:09)
[2024-04-15] MEDS: aspirin 81 mg EC Tablet PO (08:10)
[2024-04-15] MEDS: hyDRALAzine 20 mg/mL INJ 1 mL 5 MG IVP (09:46)
--- NOTE | 2024-04-15 11:51 | PC.NURSE ---
Transferred via EMS AT 1045. Patient ambulated to [facility], patient transfered in stable condition on 5 mcg of dopamine
--- NOTE | 2024-04-15 13:25 | PM.TDS ---
Transfer Summary Providers Date of Admission: 04/09/24 19:18 Date of Discharge/Transfer: 04/15/24 Attending Provider at Admission: Jaguar Blount MD Attending Provider at Transfer: Anjel Moody MD Consults: Neurology: Dr. Mccall Cardiology: Dr. Spann Primary Care Provider: JOSÉ Mata Transfer Plans: Anticipated date of transfer: 04/15/24. Receiving Facility: [facility]. Receiving Provider: Dr. Morales. Diagnoses at Discharge Discharge Diagnosis (1) Mobitz (type) II atrioventricular block: Status: Acute (2) Heart block: Status: Acute Reason for Visit Reason for Visit Stroke Like Brief History: History as per HPI: Forrest Hart is a 63 year old male status post TNKase, NIH score 5 in the ER, patient has been started on Cardene drip for hypertension going to the ICU. Patient suffered from slurred speech, disorientation around 4:00, had intermittent symptoms with waxing and waning symptoms, he was extremely hypertensive as well. Patient is stating that he has never been diagnosed with stroke or CVA NC or CHF in the past, he works full-time, active for his age, takes valsartan for blood pressure, takes glipizide stating that his blood pressure and diabetes has been under control, At the time of evaluation patient is bradycardic heart rate 150s, EKG showing type II AV block, cardiology notified, currently blood pressure is stable no active chest pain confusion or shortness of breath slurring of speech has improved Patient not on any AV dona blocking agent Since patient has received TNKase we cannot do troponin anymore we will ask lab to see if they can at least draw 1 troponin from the sample they have in the lab I have asked nurse to do bedside eval and let patient eat because he is extremely dry clinically Hospital Course Hospital Course Patient was admitted to the hospital for further evaluation and management. On admission there was a concern for acute CVA for which she was seen by neurology and he was treated with TNKase. He was monitored in ICU post thrombolytics. Patient responded well to the treatment. His hospitalization was complicated by him developing advanced third-degree heart block. Cardiology was consulted and he was started on dopamine drip. He was recommended to be transferred to a tertiary center for pacemaker implantation. Patient remained on dopamine drip of 2.5-5 to maintain his heart rate over 50 bpm. He was accepted at [facility] for further management. He has been transferred in hemodynamically stable for pacemaker implantation. Physical Exam Narrative: General: Patient is awake and alert. In bed. No acute distress. Conversational. Head: Normocephalic. Atraumatic. Neck: No JVD. Cardiovascular: No gallops. No murmurs. Bradycardic. Lungs: Clear to auscultation, no use of accessory muscles, no crackles or wheezes. Skin: No jaundice. No rashes. Abdomen: Normal bowel sounds, abdomen soft and nontender. Extremities: No cyanosis or clubbing. Musculoskeletal: No swollen or erythematous joints. Neurological: Moves all 4 extremities. No myoclonus. TS Data Studies Completed and Pending Completed Studies During Hospitalization Category Date Time Status CT head thrombolytic 15010 Stat Cat Scan 04/09/24 17:[address] head wo con* [id number] Stat Cat Scan 04/10/24 00:27 Completed CTA head neck [CT angio headneck* 63177/[id number]] Stat Cat Scan 04/09/24 17:57 Completed XR chest 1V portable [id number] Stat Exams 04/09/24 17:57 Completed CV. echo lmt wo/w bubble [id number] Routine Ultrasound 04/10/24 22:21 Completed Laboratory Last Values WBC 8.03 10^3/uL (3.29-11.43) 04/15/24 04:52 RBC 5.26 10^6/uL (3.85-5.65) 04/15/24 04:52 Hgb 16.20 g/dL (11.27-16.99) 04/15/24 04:52 Hct 48.6 % (37-53) 04/15/24 04:52 MCV 92.4 fl (82-101) 04/15/24 04:52 MCH 30.8 pg (27-33) 04/15/24 04:52 MCHC 33.3 g/dL (30-55) 04/15/24 04:52 RDW 12.8 % (12.1-15.1) 04/15/24 04:52 Plt Count 198 10^3/cmm (157-399) 04/15/24 04:52 MPV 11.3 fL (7.4-10.4) H 04/15/24 04:52 Neut % (Auto) 61.5 % 04/15/24 04:52 Lymph % (Auto) 25.8 % 04/15/24 04:52 Day % (Auto) 8.7 % 04/15/24 04:52 Eos % (Auto) 2.9 % 04/15/24 04:52 Baso % (Auto) 0.9 % 04/15/24 04:52 Neut # (Auto) 4.94 10^3/uL (1.8-7.7) 04/15/24 04:52 Lymph # (Auto) 2.1 10^3/uL (0.8-4.8) 04/15/24 04:52 Day # (Auto) 0.7 10^3/uL (0.2-0.9) 04/15/24 04:52 Eos # (Auto) 0.2 10^3/uL (0.0-0.8) 04/15/24 04:52 Baso # (Auto) 0.1 10^3/uL (0.0-0.1) 04/15/24 04:52 Nucleated RBC % (auto) 0 % 04/15/24 04:52 Nucleated RBCs # 0.0 /100WBC 04/15/24 04:52 PT 12.50 SECONDS (12.1-14.9) 04/09/24 17:56 INR 0.87 (0.8-1.2) 04/09/24 17:56 APTT 27.1 SECONDS (23.9-36.7) 04/09/24 17:56 Sodium 138 mmol/L (136-145) 04/15/24 04:52 Potassium 3.7 mmol/L (3.5-5.1) 04/15/24 04:52 Chloride 104 mmol/L (98-107) 04/15/24 04:52 Carbon Dioxide 24 mmol/L (22-29) 04/15/24 04:52 Anion Gap 13.7 (5-19) 04/15/24 04:52 BUN 19 mg/dL (8-23) 04/15/24 04:52 Creatinine 1.0 mg/dL (0.7-1.2) 04/15/24 04:52 GFR Calculation 76.0 mL/min (90-130) L 04/15/24 04:52 Glucose 86 mg/dL (65-115) 04/15/24 04:52 POC Glucose 104 mg/dL (70-110) 04/15/24 07:56 Estimat Average Glucose 263 04/09/24 17:56 Hemoglobin A1c 10.8 % (4.0-6.0) H 04/09/24 17:56 Calculated Osmolality 285 mOsm/kg (285-295) 04/12/24 06:25 Calcium 8.9 mg/dL (8.5-10.5) 04/15/24 04:52 Phosphorus 3.1 mg/dL (2.5-4.5) 04/15/24 04:52 Magnesium 1.8 mg/dL (1.7-2.3) 04/15/24 04:52 Total Bilirubin 0.9 mg/dL (0.15-1.2) 04/12/24 06:25 AST 10 U/L (0-40) 04/12/24 06:25 ALT 9 U/L (0-41) 04/12/24 06:25 Alkaline Phosphatase 85 U/L (40-130) 04/12/24 06:25 Troponin T Baseline 16 ng/L (0-15) H 04/09/24 17:56 Total Protein 6.5 g/dL (6.6-8.7) L 04/12/24 06:25 Albumin 3.5 g/dL (3.5-5.2) 04/15/24 04:52 Globulin 2.7 g/dL (1.3-4.6) 04/12/24 06:25 Triglycerides 111 mg/dL (0-150) 04/09/24 17:56 Cholesterol 198 mg/dL (0-200) 04/09/24 17:56 LDL Cholesterol, Calc 122 mg/dL (50-129) 04/09/24 17:56 Total VLDL Cholesterol 22 mg/dL (0-30) 04/09/24 17:56 HDL Cholesterol 54 mg/dL (60-100) L 04/09/24 17:56 Cholesterol/HDL Ratio 3.67 mg/dL (1.0-5.00) 04/09/24 17:56 Vitamin B12 500 pg/mL (232-1245) 04/09/24 17:56 TSH 1.35 uIU/mL (0.27-4.20) 04/09/24 17:56 Urine Color Yellow (Yellow) 04/09/24 23:20 Urine Appearance Clear (CLEAR) 04/09/24 23:20 Urine pH 6.0 (5-7) 04/09/24 23:20 Ur Specific [place] 1.062 (1.005-1.030) H 04/09/24 23:20 Urine Protein Trace (Negative) A 04/09/24 23:20 Urine Glucose (UA) Trace (Normal) H 04/09/24 23:20 Urine Ketones 1+ (Negative) H 04/09/24 23:20 Urine Blood Negative (Negative) 04/09/24 23:20 Urine Nitrate Negative (Negative) 04/09/24 23:20 Urine Bilirubin Negative (Negative) 04/09/24 23:20 Urine Urobilinogen 1.0 mg/dL (Negative) 04/09/24 23:20 Ur Leukocyte Esterase Negative (Negative) 04/09/24 23:20 Urine RBC 0-4 /hpf (0-2) H 04/09/24 23:20 Urine WBC 0-4 /hpf (0-5) H 04/09/24 23:20 Ur Squamous Epith Cells 0-4 /hpf (0-5) H 04/09/24 23:20 Amorphous Sediment Not Reportable 04/09/24 23:20 Urine Bacteria Trace /hpf (NONE) 04/09/24 23:20 Influenza A (PCR) Negative (Negative) 04/09/24 18:35 Influenza Type B (PCR) Negative (Negative) 04/09/24 18:35 RSV (PCR) Negative (Negative) 04/09/24 18:35 SARS-CoV-2 (PCR) Negative (Negative) 04/09/24 18:35 Radiology Impressions Chest X-Ray 04/09/24 17:57 IMPRESSION: No acute findings. Head/Neck CTA 04/09/24 17:57 IMPRESSION: No evidence of intracranial large vessel occlusion or aneurysm. IMPRESSION: No stenosis or occlusion. REFERENCES: NASCET CRITERIA. The degree of stenosis in the cervical segment of the internal carotid artery is based on NASCET criteria. Normal is no stenosis. Mild is less than 50% stenosis. Moderate is 50-69% stenosis. Severe is 70% to 99% stenosis. Total occlusion is no detectable patent lumen. Head CT 04/10/24 00:27 IMPRESSION: 1. Atrophy and chronic ischemic changes. 2. No acute intracranial finding or significant change from the examination done earlier this evening. Echocardiogram: CONCLUSIONS LV systolic function is normal with EF of 60-65% Bubble study does not demonstrate intracardiac shunting Mild tricuspid regurgitation No comparison studies are available. Siva Chery MD (Electronically Signed) Final Date: 10 April 2024 Recent Clincial Data Last Vital Signs Temp 97.8 F 04/15/24 00:00 Pulse 41 L 04/15/24 10:00 Resp 14 04/15/24 10:00 BP 161/71 04/15/24 10:30 Pulse Ox 95 04/15/24 10:00 O2 Del Method Nasal Cannula 04/15/24 10:00 O2 Flow Rate 2 04/15/24 10:00 Vital Signs Pulse Resp BP Pulse Ox O2 Del Method O2 Flow Rate 04/15/24 10:30 161/71 04/15/24 10:15 161/71 04/15/24 10:00 41 L 14 173/83 95 04/15/24 10:00 66 18 96 Nasal Cannula 2 04/15/24 09:45 42 L 21 H 173/83 97 04/15/24 09:30 62 16 159/73 97 04/15/24 09:15 62 7 L 159/73 96 04/15/24 09:00 65 15 127/65 97 04/15/24 08:45 63 17 127/65 98 04/15/24 08:30 70 17 156/67 04/15/24 08:15 41 L 18 156/67 04/15/24 08:00 42 L 7 L 194/71 04/15/24 07:45 41 L 12 194/71 97 04/15/24 07:30 41 L 10 L 192/73 97 04/15/24 07:15 9 L 140/77 96 04/15/24 07:00 56 L 15 147/82 96 04/15/24 06:45 65 15 147/82 98 04/15/24 06:30 61 16 146/72 97 04/15/24 06:15 53 L 17 146/72 95 04/15/24 06:00 50 L 18 130/73 98 Nasal Cannula 2 04/15/24 06:00 53 L 04/15/24 05:45 52 L 15 130/73 96 04/15/24 05:30 51 L 17 135/76 96 04/15/24 05:15 55 L 16 135/76 97 04/15/24 05:00 60 17 118/69 94 04/15/24 04:45 54 L 15 118/69 98 04/15/24 04:30 53 L 15 144/75 96 04/15/24 04:15 53 L 15 144/75 97 04/15/24 04:00 53 L 18 123/69 96 Nasal Cannula 2 04/15/24 03:45 56 L 16 123/69 96 04/15/24 03:30 55 L 17 141/69 97 04/15/24 03:15 55 L 16 141/69 97 04/15/24 03:00 59 L 28 H 126/71 96 Nasal Cannula 2 04/15/24 03:00 59 L 126/71 04/15/24 02:45 63 20 H 126/71 93 04/15/24 02:30 71 18 142/71 95 04/15/24 02:15 71 22 H 142/71 95 04/15/24 02:00 82 21 H 136/71 94 Nasal Cannula 2 04/15/24 01:45 21 H 136/71 95 04/15/24 01:30 66 21 H 148/78 95 Intake & Output/Weight 04/13/24 04/14/24 04/15/24 04/16/24 06:59 06:59 06:59 06:59 Intake Total 736.139 / 303.365 9984.181 / 1084.181 894.147 / 894.147 195.853 / 195.853 Output Total 700 / 700 1000 / 1000 450 / 450 Balance 36.139 / 36.139 84.181 / 84.181 444.147 / 444.147 195.853 / 195.853 Weight 98.3 kg 98 kg 99 kg Vitals Last Vital Signs Temp 97.8 F 04/15/24 00:00 Pulse 41 L 04/15/24 10:00 Resp 14 04/15/24 10:00 BP 161/71 04/15/24 10:30 Pulse Ox 95 04/15/24 10:00 O2 Del Method Nasal Cannula 04/15/24 10:00 O2 Flow Rate 2 04/15/24 10:00 TS Medications Medications Discontinued Medications Acetaminophen (Acetaminophen 500 Mg Tablet) 500 mg PO Q4H PRN PRN Reason: fever Last Admin: 04/12/24 19:58 Dose: 500 mg Albuterol/Ipratropium (Ipratropium-Albuterol 3 Ml Neb) 3 ml INHALATION Q6H PRN PRN Reason: SHORTNESS OF BREATH Aspirin (Aspirin 81 Mg Ec Tablet) 81 mg PO DAILY [facility] Last Admin: 04/15/24 08:10 Dose: 81 mg Atorvastatin Calcium (Atorvastatin 40 Mg Tablet) 80 mg PO DAILY [facility] Last Admin: 04/15/24 08:09 Dose: 80 mg Enoxaparin Sodium (Enoxaparin 40 Mg/0.4 Ml Syringe) 40 mg SUBCUT BEDTIME [facility] Last Admin: 04/14/24 20:39 Dose: 40 mg Glimepiride (Glimepiride 2 Mg Tablet) 2 mg PO BIDAC [facility] Last Admin: 04/15/24 08:09 Dose: 2 mg Glucagon (Glucagon 1 Mg/Ml Kit 1 Ml) 1 mg IM ONCE PRN; Protocol PRN Reason: Adult Acute Hypoglycemia Nursing Prot. Hydralazine HCl (Hydralazine 20 Mg/Ml Inj 1 Ml) 20 mg IVP ONCE ONE Stop: 04/09/24 18:10 Last Admin: 04/09/24 18:14 Dose: 20 mg Hydralazine HCl (Hydralazine 20 Mg/Ml Inj 1 Ml) 5 mg IVP ONCE ONE Stop: 04/09/24 21:19 Last Admin: 04/09/24 21:32 Dose: 5 mg Hydralazine HCl (Hydralazine 20 Mg/Ml Inj 1 Ml) 10 mg IVP Q4H PRN PRN Reason: bp>180/105mmhg Last Admin: 04/12/24 17:35 Dose: 10 mg Hydralazine HCl (Hydralazine 20 Mg/Ml Inj 1 Ml) 5 mg IVP Q4H PRN PRN Reason: bp>160 mmhg Last Admin: 04/15/24 09:46 Dose: 5 mg Nicardipine/Sodium Chloride (Cardene) 20 mg in 200 mls @ 0 mls/hr IV .Q0M [facility]; Protocol Valproic Acid 500 mg/ Sodium (Chloride) 55 mls @ 55 mls/hr IV ONCE ONE Stop: 04/09/24 20:52 Last Infusion: 04/10/24 00:00 Dose: Infused Dextrose (D5w) 500 mls @ 0 mls/hr IV ONCE PRN; Protocol PRN Reason: Adult Acute Hypoglycemia Prot Dextrose (D10w) 125 mls @ 750 mls/hr IV PRN PRN; Protocol PRN Reason: Adult Acute Hypoglycemia Nursing Protocol Dextrose (D10w) 250 mls @ 1,000 mls/hr IV PRN PRN; Protocol PRN Reason: Adult Acute Hypoglycemia Nursing Protocol Dopamine HCl/Dextrose (Intropin Drip) 400 mg in 250 mls @ 19.125 mls/hr IV CONT MELANI; Protocol Last Admin: 04/15/24 07:39 Dose: 2.5 mcg/kg/min, 9.56 mls/hr Dopamine HCl/Dextrose (Intropin Drip) Confirm Administered Dose 400 mg in 250 mls @ as directed .ROUTE .[facility]-MED ONE Stop: 04/10/24 00:06 Last Admin: 04/10/24 00:24 Dose: Not Given Valproic Acid 500 mg/ Sodium (Chloride) 55 mls @ 55 mls/hr IV ONCE ONE Stop: 04/10/24 01:27 Last Infusion: 04/10/24 02:42 Dose: Infused Magnesium Sulfate (Magnesium Sulfate Premix) 2 gm in 50 mls @ 50 mls/hr IV ONCE ONE Stop: 04/11/24 13:07 Last Infusion: 04/11/24 22:25 Dose: Infused Magnesium Sulfate (Magnesium Sulfate Premix) 2 gm in 50 mls @ 50 mls/hr IV ONCE ONE Stop: 04/12/24 11:26 Last Admin: 04/12/24 10:41 Dose: 50 mls/hr Influenza Virus Vacc Trival Recomb (Flu Vacc Pf 24-25 (6 Mos+) Syringe) 45 mcg IM .ONCE ONE Stop: 04/11/24 09:01 Last Admin: 04/11/24 08:28 Dose: 45 mcg Insulin Glargine (Insulin Glargine 100 Units/1 Ml) 10 unit SUBCUT BEDTIME MELANI Last Admin: 04/10/24 22:13 Dose: 10 unit Insulin Glargine (Insulin Glargine 100 Units/1 Ml) 15 unit SUBCUT BEDTIME MELANI Last Admin: 04/14/24 20:40 Dose: 15 unit Insulin Human Lispro (Insulin Lispro 100 Unit/1 Ml) 0 unit SUBCUT WM&BEDTIME MELANI; Protocol Last Admin: 04/15/24 07:59 Dose: Not Given Iohexol (Iohexol 350 Mg/Ml 500 Ml Btl (Per Ml)) 0 ml IV ONCE ONE Stop: 04/09/24 20:42 Last Admin: 04/09/24 20:41 Dose: 100 ml Losartan Potassium (Losartan 50 Mg Tablet) 100 mg PO DAILY MELANI Last Admin: 04/15/24 08:09 Dose: 100 mg Ondansetron HCl (Ondansetron 2 Mg/Ml Sdv 2 Ml) 4 mg IVP ONCE ONE Stop: 04/09/24 18:02 Last Admin: 04/09/24 20:11 Dose: Not Given Ondansetron HCl (Ondansetron 2 Mg/Ml Sdv 2 Ml) 4 mg IVP Q6H PRN PRN Reason: NAUSEA AND VOMITING Last Admin: 04/13/24 12:17 Dose: 4 mg Potassium Chloride (Potassium Chloride Er 20 Meq Tablet) 40 meq PO ONCE ONE Stop: 04/11/24 12:08 Last Admin: 04/11/24 12:37 Dose: 40 meq Potassium Chloride (Potassium Chloride Er 20 Meq Tablet) 40 meq PO ONCE ONE Stop: 04/12/24 09:57 Last Admin: 04/12/24 10:42 Dose: 40 meq Tenecteplase (Tenecteplase 50mg Kit (Stroke)) 25 mg 0.25 mg/kg (25 mg) IVP ONCE PRN; Protocol PRN Reason: See Dose Instructions Last Admin: 04/09/24 18:17 Dose: 25 mg Tenecteplase (Tenecteplase 50mg Kit (Stroke)) Confirm Administered Dose 50 mg .ROUTE .[facility]-MED ONE Stop: 04/09/24 18:05 Allergies No Known Allergies Allergy (Unverified 04/08/24 08:58) Home Medications atorvastatin 40 mg tablet 40 mg PO DAILY #90 tabs 04/08/24 [Rx Confirmed 04/10/24] glipizide 10 mg tablet, extended release 24 hr 10 mg PO DAILY #30 tabs 04/08/24 [Rx Confirmed 04/10/24] valsartan 320 mg tablet (Diovan) 320 mg PO DAILY #30 tabs 04/08/24 [Rx Confirmed 04/10/24] metformin 1,000 mg tablet 1,000 mg PO BID 04/10/24 [History Confirmed 04/10/24] Discharge Plan Discharge Patient Disposition: Xfer Other Condition: Stable Prescriptions: No Action atorvastatin 40 mg tablet 40 mg PO DAILY Qty: 90 1RF glipizide 10 mg tablet extended release 24hr 10 mg PO DAILY Qty: 30 2RF valsartan [Diovan] 320 mg tablet 320 mg PO DAILY Qty: 30 2RF metformin 1,000 mg tablet 1,000 mg PO BID Discharge Orders: Transfer Out of Facility (Order); Ordered 04/15/24 Ordered By: Anjel Moody Referrals: Awilda Weber FNP-C [Primary Care Provider] - Discharge Diet: Cardiac Discharge Activity: Resume usual activity and Increase activity as tolerated Transfer Attestations Time Spent in Transfer Care: greater than 30 min Specific Discharge Activities: educating patient, discussing with pcp/other providers, discussing with case management director/social workers/dc planners, documenting/other paperwork and evaluating patient/reviewing data Status at Transfer: Cognitive status at transfer: cognitively intact; Behavioral status at transfer: cooperative; Functional status at transfer: bed bound; Overall status at transfer: patient is not back to baseline Quality Metrics Clinical Quality Measures [ Cerebrovascular Accident { Contraindication to Antithrombotic: None; antithrombotic prescribed; Contraindication to Anticoagulation: Overlap treatment not indicated; Contraindication to Statin: None; Statin prescribed;}] Coding Level of Care Code Critical Care >/= 30 minutes Critical care time (in minutes): 60 The high probability of a clinically significant, sudden or life threatening deterioration, as referenced in this documentation, required my full and direct attention, intervention and personal management. The critical care time shown is in addition to time spent performing any reported separately billable procedures and includes the following: [x] Data and vital sign review and interpretation [x] Patient assessment, examination and intervention [x] Medication orders and management [x] Patient/Family updates as able [x] Care Coordination and Documentation. Other Coding Information This patient has a high probability of clinically significant, sudden or life threatening deterioration of the patient's (neurological/pulmonary/cardiac/renal/ID/endocrine) systems required my full, direct attention, the highest level of physician preparedness for urgent intervention and personal management. I managed/supervised life or organ supporting interventions that required frequent physician assessment. I devoted my full attention in the ICU to the direct care of this patient for the period of time indicated above. Time I spent with family or surrogate(s) is included only if the patient was incapable of providing necessary information or participating in decision making. This time includes the following services provided: Telemetry review Hemodynamic interpretation, assessment and management Review and interpretation of CXR Review and interpretation of lab values Review and interpretation of microbiologic data and culture results Review of medications and administration Review and interpretation of Nutrition requirements and management Discussion of management with other consultants and services Clinical update to family members Diagnoses Mobitz (type) II atrioventricular block I44.1 Heart block I45.9
--- NOTE | 2024-04-22 10:43 | PC.NURSE ---
multimedia services coordinator follow up phone call: patient was transferred to [place] for a pacemaker placement, patient now has a pacemaker with some difficulty in getting the procedure performed, patient states physician refused to do the procedure at first, patient had to appeal to get the pacemaker. Patient is home now and feeling better. No bleeding post TNKase. Symptoms of stroke almost fully resolved per patient, stating that there are sometimes some residual speech difficulties in finding words.
== END 2024-04-15 10:45 | disposition short-term general hospital (02) | DRG 308 ==
LOC: ER 19:24 → ICU 20:19
PROVIDERS: Internal Medicine; Nurse Practitioner Family; Admitting Provider Internal Medicine; Emergency Provider Emergency Medicine; PCP Nurse Practitioner Family; Visit Provider Student in an Organized Health Care Education/Training Program
DX: I44.1 Atrioventricular block, second degree (principal); I63.512 Cerebral infarction due to unspecified occlusion or stenosis of left middle cerebral artery; R47.01 Aphasia; I44.2 Atrioventricular block, complete; I10 Essential (primary) hypertension; R47.81 Slurred speech; E11.65 Type 2 diabetes mellitus with hyperglycemia; I16.0 Hypertensive urgency; E78.2 Mixed hyperlipidemia; R00.1 Bradycardia, unspecified; R29.705 NIHSS score 5; Z79.84 Long term (current) use of oral hypoglycemic drugs; Z79.899 Other long term (current) drug therapy; Z79.85 Long-term (current) use of injectable non-insulin antidiabetic drugs; Z11.52 Encounter for screening for COVID-19; Z75.1 Person awaiting admission to adequate facility elsewhere
CPT/HCPCS: 36415; 36416; 70450; 70496; 70498; 71045; 80048; 80053; 80061; 80069; 81001; 82607; 82962; 83036; 83735; 84443; 84484; 85025; 85610; 85730; 87637; 90471; 90686; 92507; 92523; 92610; 93005; 96365; 96366; 96367; 96372; 96374; 96375; 96376; 97110; 97116; 97161; 97165; 99291; C8924; J0360; J1265; J1650; J1815; J2405; J3101; J3475; J3490; J9999

== ENCOUNTER → 2024-07-25 09:16 | Outpatient (BNVA) | payer BC, SELFPAY | PROVIDERS: PCP Nurse Practitioner; Visit Provider Family Medicine | DX: I10 Essential (primary) hypertension (principal); Z95.0 Presence of cardiac pacemaker; E78.2 Mixed hyperlipidemia; E11.65 Type 2 diabetes mellitus with hyperglycemia; I63.9 Cerebral infarction, unspecified | CPT/HCPCS: 80053; 80061; 82607; 83036 ==

== ENCOUNTER → 2024-10-29 10:21 | Outpatient (BNVA) | payer BC, SELFPAY | PROVIDERS: PCP Family Medicine; Visit Provider Nurse Practitioner | DX: E11.9 Type 2 diabetes mellitus without complications (principal); E11.65 Type 2 diabetes mellitus with hyperglycemia; Z12.5 Encounter for screening for malignant neoplasm of prostate | CPT/HCPCS: 80053; 82043; 83036; G0103 ==

== ENCOUNTER → 2024-12-16 11:20 | Outpatient (BNVA) | payer BC, SELFPAY | PROVIDERS: PCP Family Medicine; Visit Provider Family Medicine | DX: F41.9 Anxiety disorder, unspecified (principal); R82.90 Unspecified abnormal findings in urine; R35.0 Frequency of micturition | CPT/HCPCS: 81000; 87086 ==